=== PATIENT | male | born 1955 | race Caucasian/White ===

== ENCOUNTER 2017-03-21 12:29 | Emergency (ER) | payer MEDICARE, MEDICAID, OTHER ==
[2017-03-21] MEDS ORDERED: Albuterol/Ipratropium 3.0-0.5 MG/3 ML Neb Soln NEB ONE (13:19)
--- NOTE | 2017-03-21 13:29 | EDM.PDOC ---
ED HPI GENERAL MEDICAL PROBLEM - General Chief Complaint: Respiratory Problem Time Seen by Provider: 03/21/17 12:59 Source of Information: Reports: Patient History Limitations: Reports: No Limitations - History of Present Illness INITIAL COMMENTS - FREE TEXT/NARRATIVE: Patient presents from [facility] and also through [facility] today, with cough, tight chest, dyspnea for 3 days. [place] been in the [place] for a year now with COPD. He is concerned he has pneumonia. He also has some chronic lower abdominal pain that he says Dr. Viveros has been working up and is still unclear for etiology. He has some difficulty urinating at times but other times can go just fine. Treatments DIRECTOR OF VALUATION: Reports: Oxygen Lower Abdomen Pain Score (Numeric/FACES): 9 - Related Data Allergies Allergy/AdvReac Type Severity Reaction Status Date / Time azithromycin [From Zithromax] Allergy Cannot Verified 06/04/16 11:11 Remember cephalexin monohydrate Allergy Cannot Verified 06/04/16 11:11 [From Keflex] Remember ciprofloxacin Allergy Rash Verified 06/04/16 11:11 diphenhydramine Allergy Rash Verified 03/21/17 13:00 [From Benadryl] diphenhydramine HCl Allergy Rash Verified 06/04/16 11:11 [From Benadryl] doxycycline Allergy Dizziness Verified 06/04/16 11:11 levofloxacin [From Levaquin] Allergy Cannot Verified 03/21/17 13:00 Remember piperacillin Allergy Cannot Verified 06/04/16 11:11 Remember piperacillin sodium Allergy Wheezing Verified 06/04/16 11:11 [From Zosyn] Sulfa (Sulfonamide Allergy Rash Verified 06/04/16 12:58 Antibiotics) tazobactam sodium Allergy Wheezing Verified 06/04/16 11:11 [From Zosyn] vancomycin Allergy Cannot Verified 03/21/17 13:00 Remember Onions Allergy Mild Rash Uncoded 06/04/16 12:58 Peppers Allergy Unknown Rash Uncoded 06/04/16 12:58 Soap Allergy Unknown Itching Uncoded 06/04/16 12:58 Home Meds: Home Meds Budesonide [Pulmicort] 0.5 mg INH 0700,2200 08/27/13 [History] Cholecalciferol (Vitamin D3) [Vitamin D3] 1,000 units PO DAILY 08/27/13 [History ] Escitalopram [Lexapro] 20 mg PO DAILY 08/27/13 [History] Latanoprost [Xalatan 0.005% Ophth Soln] 1 drop EYEBOTH BEDTIME 08/27/13 [History ] Montelukast [Singulair] 10 mg PO DAILY 08/27/13 [History] Omeprazole 20 mg PO DAILY@0530 08/27/13 [History] Theophylline Anhydrous 300 mg PO 0530,2100 08/27/13 [History] Tiotropium [Spiriva Handihaler] 18 mcg INH DAILY 08/27/13 [History] Tamsulosin [Flomax] 0.8 mg PO BEDTIME 05/23/15 [History] Metoprolol Succinate [Toprol XL 50mg] 50 mg PO DAILY 12/15/15 [History] Aspirin [Halfprin] 81 mg PO DAILY #90 tab.ec 12/22/15 [Rx] ClonazePAM [KlonoPIN] 1 mg PO BID #60 tablet 12/22/15 [Rx] Multivitamin with Minerals [Multiple Vitamin] 1 tab PO DAILY #30 tablet [Rx] QUEtiapine Fumarate [Seroquel] 50 mg PO BID #60 tablet 12/22/15 [Rx] Loperamide HCl [Imodium A-D] 2 mg PO ASDIRECTED PRN 06/04/16 [History] Polyethylene Glycol 3350 [MiraLAX] 17 gm PO Q2D@2100 06/04/16 [History] Albuterol [Ventolin HFA] 2 puff INH Q6H PRN 06/06/16 [History] Carboxymethylcellulose Sodium [Refresh Tears] 1 drop EYEBOTH TIDAC PRN 06/06/16 [History] Acetaminophen [Tylenol] 650 mg PO Q4H PRN 03/21/17 [History] Arformoterol [Brovana] 15 mcg NEB BID 03/21/17 [History] Calcium Carbonate [Tums] 500 mg PO TID PRN 03/21/17 [History] Finasteride [Proscar] 5 mg PO DAILY 03/21/17 [History] Loperamide [Imodium] 2 mg PO ASDIRECTED 03/21/17 [History] Past Medical History HEENT History: Reports: Glaucoma, Impaired Vision Cardiovascular History: Reports: SOB on Exertion Respiratory History: Reports: Asthma, Bronchitis, Recurrent, COPD, Pneumonia, Recurrent Gastrointestinal History: Reports: GERD Genitourinary History: Reports: BPH, Prostate Disorder Other Genitourinary History: cystitis without hematuria Musculoskeletal History: Reports: Back Pain, Chronic, Neck Pain, Chronic Neurological History: Reports: Other (See Below) Other Neuro History: chronic shaking Psychiatric History: Reports: Anxiety, Panic Attack Endocrine/Metabolic History: Reports: Vitamin D Deficiency, Other (See Below) Other Endocrine/Metabolic History: thyroid nodule,nontoxic uninodular goiter Hematologic History: Reports: Other (See Below) Other Hematologic History: platelet transfusion - Infectious Disease History Infectious Disease History: Reports: Measles, Mumps, Rubella - Past Surgical History GI Surgical History: Reports: Hernia, Inguinal Musculoskeletal Surgical History: Reports: Other (See Below) Social & Family History - Family History Family Medical History: Noncontributory - Tobacco Use Smoking Status *Q: Former Smoker Years of Tobacco use: 30 Packs/Tins Daily: 3 Used Tobacco, but Quit: Yes Month Tobacco Last Used: December Second Hand Smoke Exposure: No - Caffeine Use Caffeine Use: Reports: Coffee, Soda - Alcohol Use Days Per Week of Alcohol Use: 0 - Recreational Drug Use Recreational Drug Use: No ED ROS GENERAL - Review of Systems Review Of Systems: See Below Constitutional: Reports: Fever. Denies: Chills HEENT: Reports: No Symptoms Respiratory: Reports: Shortness of Breath, Wheezing, Cough, Sputum Cardiovascular: Denies: Chest Pain, Syncope GI/Abdominal: Reports: Abdominal Pain (lower abdomen for more than a month), Constipation (feels a little constipated; last BM was 25 hours ago.). Denies: Vomiting : Reports: Urinary Retention (intermittent). Denies: Dysuria, Flank Pain Musculoskeletal: Reports: No Symptoms Skin: Denies: Cyanosis, Jaundice, Mottled, Pallor, Diaphoresis Neurological: Denies: Confusion, Dizziness, Trouble Speaking Psychiatric: Denies: Agitation, Anxiety, Confusion ED EXAM, GENERAL - Physical Exam Exam: See Below Exam Limited By: No Limitations General Appearance: Alert, WD/WN, No Apparent Distress Eye Exam: Bilateral Eye: EOMI, Normal Inspection, PERRL Ears: Normal External Exam, Hearing Grossly Normal Nose: Normal Inspection, No Blood. No: Nasal Flaring Throat/Mouth: Normal Inspection, Normal Lips, Normal Voice, No Airway Compromise Head: Atraumatic, Normocephalic Neck: Normal Inspection, Supple, Non-Tender, Full Range of Motion Respiratory/Chest: Respiratory Distress (minimal at rest), Decreased Breath Sounds, Crackles (minimal, mostly decreased lung sounds), Wheezing. No: Rhonchi , Accessory Muscle Use Cardiovascular: Normal Peripheral Pulses, Regular Rate, Rhythm, No Edema, No JVD , No Murmur Peripheral Pulses: 2+: Carotid (L), Carotid (R), Radial (L), Radial (R), Posterior Tibial (L), Posterior Tibial (R) GI/Abdominal: Normal Bowel Sounds, Soft, No Organomegaly, No Distention, Tender (LUQ/LLQ, suprapubic). No: Rigid Back Exam: No: CVA Tenderness (L), CVA Tenderness (R) Extremities: Normal Inspection, Normal Range of Motion, Non-Tender, No Pedal Edema Neurological: Alert, Oriented, Normal Cognition, No Motor/Sensory Deficits Psychiatric: Normal Affect, Normal Mood Skin Exam: Warm, Dry, Intact, Normal Color, No Rash Course - Vital Signs Last Recorded V/S: Last Vital Signs Temp 100.0 F 03/21/17 12:32 Pulse 86 03/21/17 13:37 Resp 20 03/21/17 12:32 BP 137/76 03/21/17 12:32 Pulse Ox 97 03/21/17 12:32 - Orders/Labs/Meds Orders: Active Orders 24 hr Category Date Time Status RT Aerosol Therapy [RC] ASDIRECTED Care 03/21/17 13:19 Ordered Abdomen 2V AP Upright Decub [CR] Stat Exams 03/21/17 13:16 Ordered Chest 2V [CR] Stat Exams 03/21/17 13:16 Ordered CULTURE BLOOD [BC] Stat Lab 03/21/17 13:46 Ordered CULTURE BLOOD [BC] Stat Lab 03/21/17 13:46 Ordered Levofloxacin [Levaquin] Med 03/21/17 14:31 Once 750 mg PO ONETIME ONE Blood Culture x2 Reflex Set [OM.PC] Stat Oth 03/21/17 13:45 Ordered Labs: Laboratory Tests 03/21/17 03/21/17 03/21/17 Range/Units 12:50 12:50 12:50 WBC 11.5 H (5.0-10.0) 10^3/uL RBC 4.47 L (4.50-6.00) 10^6/uL Hgb 14.2 (13.0-17.0) g/dL Hct 42.7 (40.0-52.0) % MCV 95.5 H (82.0-92.0) fL MCH 31.8 H (27.0-31.0) pg MCHC 33.3 (32.0-36.0) g/dL RDW 13.8 (11.5-14.5) % Plt Count 153 (150-300) 10^3/uL MPV 9.0 (7.4-10.4) fL Neut % (Auto) 86.8 H (50.0-70.0) % Lymph % (Auto) 5.6 L (20.0-40.0) % Gregg % (Auto) 7.0 (2.0-8.0) % Eos % (Auto) 0.5 L (1.0-3.0) % Baso % (Auto) 0.1 (0.0-1.0) % Neut # (Auto) 10.0 H (2.5-7.0) 10^3/uL Lymph # (Auto) 0.6 L (1.0-4.0) 10^3/uL Gregg # (Auto) 0.8 (0.1-0.8) 10^3/uL Eos # (Auto) 0.1 (0.1-0.3) 10^3/uL Baso # (Auto) 0.0 (0.0-0.1) 10^3/uL Sodium 139 (136-145) mmol/L Potassium 4.2 (3.3-5.3) mmol/L Chloride 102 (98-115) mmol/L Carbon Dioxide 30.7 (21.0-32.0) mmol/L BUN 6 (6-25) mg/dL Creatinine 0.83 (0.51-1.17) mg/dL Est Cr Clr Drug Dosing 126.66 mL/min Estimated GFR (MDRD) > 60 mL/min Glucose 109 (70-110) mg/dL Lactic Acid 2.2 H (0.4-2.0) mmol/L Calcium 8.7 (8.7-10.3) mg/dL Total Bilirubin 0.6 (0.2-1.0) mg/dL AST 20 (15-37) U/L ALT 33 (12-78) U/L Alkaline Phosphatase 70 (46-116) IU/L Total Protein 7.6 (6.4-8.2) g/dL Albumin 3.41 (3.00-4.80) g/dL Specimen Type Urine Color (YELLOW) Urine Appearance (CLEAR) Urine pH (5.0-9.0) Ur Specific Keldron (1.005-1.030) Urine Protein (NEGATIVE) mg/dL Urine Glucose (UA) (NEGATIVE) mg/dL Urine Ketones (NEGATIVE) mg/dL Urine Occult Blood (NEGATIVE) Urine Nitrite (NEGATIVE) Urine Bilirubin (NEGATIVE) Urine Urobilinogen (0.2-1.0) E.U./dL Ur Leukocyte Esterase (NEGATIVE) Urine RBC /HPF Urine WBC /HPF Ur Epithelial Cells /LPF Urine Bacteria (NONE TO FEW) /HPF 03/21/17 Range/Units 13:25 WBC (5.0-10.0) 10^3/uL RBC (4.50-6.00) 10^6/uL Hgb (13.0-17.0) g/dL Hct (40.0-52.0) % MCV (82.0-92.0) fL MCH (27.0-31.0) pg MCHC (32.0-36.0) g/dL RDW (11.5-14.5) % Plt Count (150-300) 10^3/uL MPV (7.4-10.4) fL Neut % (Auto) (50.0-70.0) % Lymph % (Auto) (20.0-40.0) % Gregg % (Auto) (2.0-8.0) % Eos % (Auto) (1.0-3.0) % Baso % (Auto) (0.0-1.0) % Neut # (Auto) (2.5-7.0) 10^3/uL Lymph # (Auto) (1.0-4.0) 10^3/uL Gregg # (Auto) (0.1-0.8) 10^3/uL Eos # (Auto) (0.1-0.3) 10^3/uL Baso # (Auto) (0.0-0.1) 10^3/uL Sodium (136-145) mmol/L Potassium (3.3-5.3) mmol/L Chloride (98-115) mmol/L Carbon Dioxide (21.0-32.0) mmol/L BUN (6-25) mg/dL Creatinine (0.51-1.17) mg/dL Est Cr Clr Drug Dosing mL/min Estimated GFR (MDRD) mL/min Glucose (70-110) mg/dL Lactic Acid (0.4-2.0) mmol/L Calcium (8.7-10.3) mg/dL Total Bilirubin (0.2-1.0) mg/dL AST (15-37) U/L ALT (12-78) U/L Alkaline Phosphatase (46-116) IU/L Total Protein (6.4-8.2) g/dL Albumin (3.00-4.80) g/dL Specimen Type Urinvoid Urine Color Yellow (YELLOW) Urine Appearance Clear (CLEAR) Urine pH 7.0 (5.0-9.0) Ur Specific Keldron 1.020 (1.005-1.030) Urine Protein Negative (NEGATIVE) mg/dL Urine Glucose (UA) Negative (NEGATIVE) mg/dL Urine Ketones Negative (NEGATIVE) mg/dL Urine Occult Blood Trace-lysed H (NEGATIVE) Urine Nitrite Negative (NEGATIVE) Urine Bilirubin Negative (NEGATIVE) Urine Urobilinogen 0.2 (0.2-1.0) E.U./dL Ur Leukocyte Esterase Negative (NEGATIVE) Urine RBC 0-5 /HPF Urine WBC 0-5 /HPF Ur Epithelial Cells Rare /LPF Urine Bacteria Rare (NONE TO FEW) /HPF Meds: Medications Discontinued Medications Generic Name Dose Route Start Last Admin Trade Name Freq PRN Reason Stop Dose Admin Albuterol/Ipratropium 3 ml 03/21/17 13:19 03/21/17 13:36 Duoneb 3.0-0.5 Mg/3 Ml NEB 03/21/17 13:20 3 ml ONETIME ONE Administration - Re-Assessments/Exams Free Text/Narrative Re-Assessment/Exam: 03/21/17 14:32 Duoneb today provided significant improvement in his breathing. Clinically air movement is improved as well. WBC of 11.5 and 89% neutrophils. CXR shows nothing acute. Abdominal film is negative. Discussed findings and treatment options with patient. Will discharge to [place] and treat with Levaquin for presumed early pneumonia and resume qid Duoneb treatments. Pt prefers this rather than staying in hospital and I feel it is reasonable and appropriate. Patient stable and feeling significantly improved at discharge. 03/21/17 14:51 Pt has an extensive list of antibiotic allergies including: penicillins, cephalosporins, doxycycline, zithromax, sulfa, cipro and vanco. Looking at most recent visits he has been on Levaquin and Vanco successfully. Pt isn't sure why Vanco is listed on his allergies. Departure - Departure Time of Disposition: 14:37 Disposition: DC/Tfer to [facility] 03 Condition: Fair Clinical Impression: COPD exacerbation, HCAP (healthcare-associated pneumonia) - Discharge Information Forms: ED Department Discharge Additional Instructions: 1. Take Levaquin 750 mg daily for ten days. 2. Use Duoneb four times daily and albuterol qid prn neb for ten days. Continue your other medications as directed. 3. Drink 6-8 cups of water daily. 4. Follow up with your PCP in 7-10 days for recheck or sooner as needed. - My Orders Last 24 Hours: My Active Orders 03/21/17 13:16 Abdomen 2V AP Upright Decub [CR] Stat Chest 2V [CR] Stat 03/21/17 13:19 RT Aerosol Therapy [RC] ASDIRECTED 03/21/17 13:45 Blood Culture x2 Reflex Set [OM.PC] Stat 03/21/17 13:46 CULTURE BLOOD [BC] Stat CULTURE BLOOD [BC] Stat 03/21/17 14:31 Levofloxacin [Levaquin] 750 mg PO ONETIME ONE - Assessment/Plan Last 24 Hours: My Active Orders 03/21/17 13:16 Abdomen 2V AP Upright Decub [CR] Stat Chest 2V [CR] Stat 03/21/17 13:19 RT Aerosol Therapy [RC] ASDIRECTED 03/21/17 13:45 Blood Culture x2 Reflex Set [OM.PC] Stat 03/21/17 13:46 CULTURE BLOOD [BC] Stat CULTURE BLOOD [BC] Stat 03/21/17 14:31 Levofloxacin [Levaquin] 750 mg PO ONETIME ONE
[2017-03-21 13:56] LABS: CHLORIDE,CL 102 mmol/L (98-115); SODIUM,NA 139 mmol/L (136-145)
[2017-03-21] MEDS ORDERED: Levofloxacin 500 MG Tab PO ONE (14:31)
[2017-03-21 15:13] VITALS: BP 118/68
== END 2017-03-21 15:20 ==
LOC: KA.ED 12:29
DX: J44.1 Chronic obstructive pulmonary disease with (acute) exacerbation (principal); J18.9 Pneumonia, unspecified organism; F41.0 Panic disorder [episodic paroxysmal anxiety]; K21.9 Gastro-esophageal reflux disease without esophagitis; Z88.1 Allergy status to other antibiotic agents; Z88.2 Allergy status to sulfonamides; Z91.018 Allergy to other foods; Z91.048 Other nonmedicinal substance allergy status; Z79.82 Long term (current) use of aspirin; Z79.899 Other long term (current) drug therapy; Z87.01 Personal history of pneumonia (recurrent); Z87.891 Personal history of nicotine dependence
CPT/HCPCS: 71020; 74020; 80053; 81001; 83605; 85025; 94640; 99285; A9270

== ENCOUNTER 2017-07-01 09:40 | Emergency (ER) | payer MEDICARE, MEDICAID ==
[2017-07-01 09:58] VITALS: BP 143/69
[2017-07-01] MEDS ORDERED: Iopamidol 612 MG/ML 75 ML Bottle IV PRN (10:28)
[2017-07-01] MEDS ORDERED: Sodium Chloride 0.9% 50 ML SDV FLUSH ONE (10:30)
--- NOTE | 2017-07-01 10:41 | EDM.PDOC ---
ED HPI GENERAL MEDICAL PROBLEM - General Chief Complaint: Abdominal Pain Stated Complaint: ABDOMINAL PAIN Time Seen by Provider: 07/01/17 10:00 Source of Information: Reports: Patient History Limitations: Reports: No Limitations - History of Present Illness INITIAL COMMENTS - FREE TEXT/NARRATIVE: PATIENT IS A 62-YEAR-OLD GENTLEMAN WHO PRESENTS TO EMERGENCY DEPARTMENT FROM NURSING FACILITY THIS MORNING WITH A COMPLAINT OF ABDOMINAL PAIN. PATIENT WAS SEEN IN [facility] BY THERESE MCKAY YESTERDAY, AND A CAT SCAN, AND ULTRASOUND WAS ORDERED FOR TOMORROW. PATIENT STATES THAT THE DISCOMFORT IS BEEN GOING ON FOR SEVERAL WEEKS AND WANTS TO GET THE CAT SCAN SOONER. PATIENT DENIES TRAUMA, NAUSEA, VOMITING, DIARRHEA, FEVER, CHEST PAIN, SHORTNESS OF BREATH, OR BLOOD IN STOOL. Onset: Gradual Duration: Week(s): Location: Reports: Abdomen Quality: Reports: Ache Severity: Mild Improves with: Reports: None Worsens with: Reports: Eating Associated Symptoms: Reports: No Other Symptoms Abdomen Pain Score (Numeric/FACES): 10 - Related Data Allergies Allergy/AdvReac Type Severity Reaction Status Date / Time azithromycin [From Zithromax] Allergy Cannot Verified 07/01/17 09:59 Remember cephalexin monohydrate Allergy Cannot Verified 07/01/17 09:59 [From Keflex] Remember ciprofloxacin Allergy Rash Verified 07/01/17 09:59 diphenhydramine Allergy Rash Verified 07/01/17 09:59 [From Benadryl] diphenhydramine HCl Allergy Rash Verified 07/01/17 09:59 [From Benadryl] doxycycline Allergy Dizziness Verified 07/01/17 09:59 levofloxacin [From Levaquin] Allergy Cannot Verified 07/01/17 09:59 Remember piperacillin Allergy Cannot Verified 07/01/17 09:59 Remember piperacillin sodium Allergy Wheezing Verified 07/01/17 09:59 [From Zosyn] Sulfa (Sulfonamide Allergy Rash Verified 07/01/17 09:59 Antibiotics) tazobactam sodium Allergy Wheezing Verified 07/01/17 09:59 [From Zosyn] vancomycin Allergy Cannot Verified 07/01/17 09:59 Remember Onions Allergy Mild Rash Uncoded 06/04/16 12:58 Peppers Allergy Unknown Rash Uncoded 06/04/16 12:58 Soap Allergy Unknown Itching Uncoded 06/04/16 12:58 Home Meds: Home Meds Budesonide [Pulmicort] 0.5 mg INH 0700,2200 08/27/13 [History] Cholecalciferol (Vitamin D3) [Vitamin D3] 1,000 units PO DAILY 08/27/13 [History ] Escitalopram [Lexapro] 20 mg PO DAILY 08/27/13 [History] Latanoprost [Xalatan 0.005% Ophth Soln] 1 drop EYEBOTH BEDTIME 08/27/13 [History ] Montelukast [Singulair] 10 mg PO DAILY 08/27/13 [History] Omeprazole 20 mg PO DAILY@0530 08/27/13 [History] Theophylline Anhydrous 300 mg PO 0530,2100 08/27/13 [History] Tiotropium [Spiriva Handihaler] 18 mcg INH DAILY 08/27/13 [History] Tamsulosin [Flomax] 0.8 mg PO BEDTIME 05/23/15 [History] Metoprolol Succinate [Toprol XL 50mg] 50 mg PO DAILY 12/15/15 [History] Aspirin [Halfprin] 81 mg PO DAILY #90 tab.ec 12/22/15 [Rx] ClonazePAM [KlonoPIN] 1 mg PO BID #60 tablet 12/22/15 [Rx] Multivitamin with Minerals [Multiple Vitamin] 1 tab PO DAILY #30 tablet [Rx] QUEtiapine Fumarate [Seroquel] 50 mg PO BID #60 tablet 12/22/15 [Rx] Loperamide HCl [Imodium A-D] 2 mg PO ASDIRECTED PRN 06/04/16 [History] Polyethylene Glycol 3350 [MiraLAX] 17 gm PO Q2D@2100 06/04/16 [History] Albuterol [Ventolin HFA] 2 puff INH Q6H PRN 06/06/16 [History] Carboxymethylcellulose Sodium [Refresh Tears] 1 drop EYEBOTH TIDAC PRN 06/06/16 [History] Acetaminophen [Tylenol] 650 mg PO Q4H PRN 03/21/17 [History] Arformoterol [Brovana] 15 mcg NEB BID 03/21/17 [History] Calcium Carbonate [Tums] 500 mg PO TID PRN 03/21/17 [History] Finasteride [Proscar] 5 mg PO DAILY 03/21/17 [History] Loperamide [Imodium] 2 mg PO ASDIRECTED 03/21/17 [History] Past Medical History HEENT History: Reports: Glaucoma, Impaired Vision Cardiovascular History: Reports: SOB on Exertion Respiratory History: Reports: Asthma, Bronchitis, Recurrent, COPD, Pneumonia, Recurrent Gastrointestinal History: Reports: GERD Genitourinary History: Reports: BPH, Prostate Disorder Other Genitourinary History: cystitis without hematuria Musculoskeletal History: Reports: Back Pain, Chronic, Neck Pain, Chronic Neurological History: Reports: Other (See Below) Other Neuro History: chronic shaking Psychiatric History: Reports: Anxiety, Panic Attack Endocrine/Metabolic History: Reports: Vitamin D Deficiency, Other (See Below) Other Endocrine/Metabolic History: thyroid nodule,nontoxic uninodular goiter Hematologic History: Reports: Other (See Below) Other Hematologic History: platelet transfusion - Infectious Disease History Infectious Disease History: Reports: Measles, Mumps, Rubella - Past Surgical History GI Surgical History: Reports: Hernia, Inguinal Musculoskeletal Surgical History: Reports: Other (See Below) Social & Family History - Family History Family Medical History: Noncontributory - Tobacco Use Smoking Status *Q: Former Smoker Years of Tobacco use: 30 Packs/Tins Daily: 3 Used Tobacco, but Quit: Yes Month Tobacco Last Used: December Second Hand Smoke Exposure: No - Caffeine Use Caffeine Use: Reports: Coffee, Soda - Alcohol Use Days Per Week of Alcohol Use: 0 - Recreational Drug Use Recreational Drug Use: No ED ROS GENERAL - Review of Systems Review Of Systems: ROS reveals no pertinent complaints other than HPI. Constitutional: Reports: No Symptoms HEENT: Reports: No Symptoms Respiratory: Reports: No Symptoms Cardiovascular: Reports: No Symptoms Endocrine: Reports: No Symptoms GI/Abdominal: Reports: Abdominal Pain : Reports: No Symptoms Musculoskeletal: Reports: No Symptoms Skin: Reports: No Symptoms Neurological: Reports: No Symptoms Psychiatric: Reports: No Symptoms Hematologic/Lymphatic: Reports: No Symptoms Immunologic: Reports: No Symptoms ED EXAM, GI/ABD - Physical Exam Exam: See Below Exam Limited By: No Limitations General Appearance: Alert, WD/WN, No Apparent Distress Throat/Mouth: Normal Inspection, Normal Oropharynx, No Airway Compromise Head: Atraumatic, Normocephalic Neck: Normal Inspection Respiratory/Chest: No Respiratory Distress, Lungs Clear, Normal Breath Sounds Cardiovascular: Regular Rate, Rhythm, No Murmur GI/Abdominal Exam: Soft, No Organomegaly, No Abnormal Bruit, No Mass, Tender ( DIFFUSELY), Other (HYPERACTIVE BS IN ALL 4 QUADS) Back Exam: Normal Inspection. No: CVA Tenderness (L), CVA Tenderness (R) Extremities: Normal Inspection, No Pedal Edema Neurological: Alert, Oriented, Normal Cognition Psychiatric: Normal Affect, Normal Mood Skin Exam: Warm, Dry, Normal Color, No Rash Course - Vital Signs Last Recorded V/S: Last Vital Signs Temp 99.0 F 07/01/17 09:53 Pulse 116 H 07/01/17 09:53 Resp 20 07/01/17 09:53 BP 143/69 H 07/01/17 09:53 Pulse Ox 98 07/01/17 09:53 - Orders/Labs/Meds Orders: Active Orders 24 hr Category Date Time Status Abdomen Pelvis w Cont [CT] Stat Exams 07/01/17 10:08 Ordered CBC WITH AUTO DIFF [HEME] Stat Lab 07/01/17 10:20 Received COMPREHENSIVE METABOLIC PN,CMP [CHEM] Stat Lab 07/01/17 10:20 Received LIPASE [CHEM] Stat Lab 07/01/17 10:20 Received Iopamidol [Isovue-300 (61%)] Med 07/01/17 10:28 Active 75 ml IV . DIRECTED PRN Medication Orders Iopamidol (Isovue-300 (61%)) 75 ml IV . DIRECTED PRN PRN Reason: FOR RADIOLOGY EXAM Meds: Medications Generic Name Dose Route Start Last Admin Trade Name Freq PRN Reason Stop Dose Admin Iopamidol 75 ml 07/01/17 10:28 Isovue-300 (61%) IV . DIRECTED PRN FOR RADIOLOGY EXAM Discontinued Medications Generic Name Dose Route Start Last Admin Trade Name Freq PRN Reason Stop Dose Admin Sodium Chloride 50 ml 07/01/17 10:30 Normal Saline FLUSH 07/01/17 10:31 ONETIME ONE - Radiology Interpretation Free Text/Narrative:: CT of abdomen and pelvis with IV and oral contrast shows mild persistent calcification left bladder wall, diverticulosis without evidence of diverticulitis, and mild fecal retention in the proximal colon. - Re-Assessments/Exams Free Text/Narrative Re-Assessment/Exam: 07/01/17 12:26 Patient afebrile, nontoxic appearing. Vital signs stable. at bedside. Patient had 2 large bowel movements while in emergency department and feels much better. Departure - Departure Time of Disposition: 12:28 Disposition: DC/Tfer to [facility] Condition: Good Clinical Impression: Abdominal pain Qualifiers: Abdominal location: generalized Qualified Code(s): R10.84 - Generalized abdominal pain Constipation Qualifiers: Constipation type: unspecified constipation type Qualified Code(s): K59.00 - Constipation, unspecified Diverticulosis Qualifiers: Diverticulosis site: unspecified location Diverticulosis bleeding: diverticulosis without bleeding Qualified Code(s): K57.90 - Diverticulosis of intestine, part unspecified, without perforation or abscess without bleeding - Discharge Information Instructions: Abdominal Pain, Adult, [id number], Constipation, Adult, Easy-to -Read Referrals: Therese Mckay, [employer] [Primary Care Provider] - Additional Instructions: Follow-up at [facility] in 2-3 days. Return to emergency room sooner if discomfort continues or worsens. - My Orders Last 24 Hours: My Active Orders 07/01/17 10:08 Abdomen Pelvis w Cont [CT] Stat 07/01/17 10:20 CBC WITH AUTO DIFF [HEME] Stat COMPREHENSIVE METABOLIC PN,CMP [CHEM] Stat LIPASE [CHEM] Stat 07/01/17 10:28 Iopamidol [Isovue-300 (61%)] 75 ml IV . DIRECTED PRN - Assessment/Plan Last 24 Hours: My Active Orders 07/01/17 10:08 Abdomen Pelvis w Cont [CT] Stat 07/01/17 10:20 CBC WITH AUTO DIFF [HEME] Stat COMPREHENSIVE METABOLIC PN,CMP [CHEM] Stat LIPASE [CHEM] Stat 07/01/17 10:28 Iopamidol [Isovue-300 (61%)] 75 ml IV . DIRECTED PRN Assessment:: Abdominal pain, constipation Plan: Follow-up at [facility]
[2017-07-01 10:48] LABS: CHLORIDE,CL 102 mmol/L (98-115); SODIUM,NA 139 mmol/L (136-145)
== END 2017-07-01 12:50 ==
LOC: KA.ED 09:40
DX: K57.90 Diverticulosis of intestine, part unspecified, without perforation or abscess without bleeding (principal); K59.00 Constipation, unspecified; Z88.1 Allergy status to other antibiotic agents; Z88.6 Allergy status to analgesic agent; Z79.899 Other long term (current) drug therapy; Z79.82 Long term (current) use of aspirin; Z87.891 Personal history of nicotine dependence
CPT/HCPCS: 74177; 80053; 83690; 85025; 99285; Q9967; 99284

== ENCOUNTER 2019-02-17 09:13 | Inpatient (IN) | payer MEDICARE, MEDICAID ==
[2019-02-17] MEDS ORDERED: Albuterol/Ipratropium 3.0-0.5 MG/3 ML Neb Soln ONE (09:28)
[2019-02-17] MEDS ORDERED: Albuterol/Ipratropium 3.0-0.5 MG/3 ML Neb Soln NEB ONE (09:29)
[2019-02-17] MEDS ORDERED: Sodium Chloride 0.9% 1,000 ML IV ONE (09:29)
[2019-02-17] MEDS ORDERED: methylPREDNISolone Sodium Succinate 125 MG/2 ML SDV IVPUSH ONE (09:30)
--- NOTE | 2019-02-17 09:40 | EDM.PDOC ---
ED HPI GENERAL MEDICAL PROBLEM - General Chief Complaint: Respiratory Problem Stated Complaint: SOB Time Seen by Provider: 02/17/19 09:19 Source of Information: Reports: Patient History Limitations: Reports: No Limitations - History of Present Illness INITIAL COMMENTS - FREE TEXT/NARRATIVE: Patient presents via ambulance with shortness of breath. He thinks he might have pneumonia. Shortness of breath started two days ago but today he started coughing up lots of sputum. He has COPD and uses inhalers and Duonebs routinely. Today he was very short of breath with minimal activity. He denies chest pain, diaphoresis or vomiting but had some nausea this morning. - Related Data Allergies Allergy/AdvReac Type Severity Reaction Status Date / Time azithromycin [From Zithromax] Allergy Cannot Verified 02/17/19 09:14 Remember cephalexin monohydrate Allergy Cannot Verified 02/17/19 09:14 [From Keflex] Remember ciprofloxacin Allergy Rash Verified 02/17/19 09:14 diphenhydramine HCl Allergy Rash Verified 02/17/19 09:14 [From Benadryl] doxycycline Allergy Dizziness Verified 02/17/19 09:14 levofloxacin [From Levaquin] Allergy Cannot Verified 02/17/19 09:14 Remember piperacillin sodium Allergy Wheezing Verified 02/17/19 09:14 [From Zosyn] Sulfa (Sulfonamide Allergy Rash Verified 02/17/19 09:14 Antibiotics) tazobactam sodium Allergy Wheezing Verified 02/17/19 09:14 [From Zosyn] vancomycin Allergy Cannot Verified 02/17/19 09:14 Remember Onions Allergy Mild Rash Uncoded 07/01/17 12:20 Peppers Allergy Unknown Rash Uncoded 07/01/17 12:20 Soap Allergy Unknown Itching Uncoded 07/01/17 12:20 Home Meds: Home Meds Budesonide [Pulmicort] 0.5 mg INH 0700,2200 08/27/13 [History] Cholecalciferol (Vitamin D3) [Vitamin D3] 1,000 units PO DAILY 08/27/13 [History ] Escitalopram [Lexapro] 20 mg PO DAILY 08/27/13 [History] Latanoprost [Xalatan 0.005% Ophth Soln] 1 drop EYEBOTH BEDTIME 08/27/13 [History ] Montelukast [Singulair] 10 mg PO DAILY 08/27/13 [History] Omeprazole 20 mg PO DAILY@0530 08/27/13 [History] Tiotropium [Spiriva Handihaler] 18 mcg INH DAILY 08/27/13 [History] Tamsulosin [Flomax] 0.8 mg PO BEDTIME 05/23/15 [History] Metoprolol Succinate [Toprol XL 50mg] 50 mg PO DAILY 12/15/15 [History] Aspirin [Halfprin] 81 mg PO DAILY #90 tab.ec 12/22/15 [Rx] Multivitamin with Minerals [Multiple Vitamin] 1 tab PO DAILY #30 tablet [Rx] Polyethylene Glycol 3350 [MiraLAX] 17 gm PO Q2D@2100 06/04/16 [History] Albuterol [Ventolin HFA] 2 puff INH Q6H PRN 06/06/16 [History] Carboxymethylcellulose Sodium [Refresh Tears] 1 drop EYEBOTH TIDAC PRN 06/06/16 [History] Acetaminophen [Tylenol] 650 mg PO Q4H PRN 03/21/17 [History] Arformoterol [Brovana] 15 mcg NEB BID 03/21/17 [History] Finasteride [Proscar] 5 mg PO DAILY 03/21/17 [History] Albuterol/Ipratropium [DuoNeb 3.0-0.5 MG/3 ML] 3 ml INH Q8H PRN 02/17/19 [ History] QUEtiapine Fumarate [Seroquel] 400 mg PO BEDTIME 02/17/19 [History] QUEtiapine [SEROquel] 100 mg PO 0900,1700 02/17/19 [History] clonazePAM [Klonopin] 1 mg PO BID 02/17/19 [History] Past Medical History HEENT History: Reports: Glaucoma, Impaired Vision Cardiovascular History: Reports: SOB on Exertion Respiratory History: Reports: Asthma, Bronchitis, Recurrent, COPD, Pneumonia, Recurrent Gastrointestinal History: Reports: GERD Genitourinary History: Reports: BPH, Prostate Disorder Other Genitourinary History: cystitis without hematuria Musculoskeletal History: Reports: Back Pain, Chronic, Neck Pain, Chronic Neurological History: Reports: Other (See Below) Other Neuro History: chronic shaking Psychiatric History: Reports: Anxiety, Panic Attack Endocrine/Metabolic History: Reports: Vitamin D Deficiency, Other (See Below) Other Endocrine/Metabolic History: thyroid nodule,nontoxic uninodular goiter Hematologic History: Reports: Other (See Below) Other Hematologic History: platelet transfusion - Infectious Disease History Infectious Disease History: Reports: Measles, Mumps, Rubella - Past Surgical History GI Surgical History: Reports: Hernia, Inguinal Musculoskeletal Surgical History: Reports: Other (See Below) Social & Family History - Family History Family Medical History: Noncontributory - Caffeine Use Caffeine Use: Reports: Coffee, Soda ED ROS GENERAL - Review of Systems Review Of Systems: See Below Constitutional: Reports: Fever, Malaise HEENT: Denies: Throat Pain, Vision Change Respiratory: Reports: Shortness of Breath, Wheezing, Cough, Sputum (started today) Cardiovascular: Denies: Chest Pain, Lightheadedness, Syncope GI/Abdominal: Reports: Nausea. Denies: Abdominal Pain, Constipation, Diarrhea, Vomiting : Denies: Dysuria Musculoskeletal: Reports: No Symptoms Skin: Denies: Cyanosis, Jaundice, Mottled, Pallor, Diaphoresis Neurological: Denies: Confusion, Dizziness, Seizure, Syncope, Trouble Speaking, Difficulty Walking Psychiatric: Denies: Agitation, Anxiety, Confusion ED EXAM, GENERAL - Physical Exam Exam: See Below Exam Limited By: No Limitations General Appearance: Alert, WD/WN, No Apparent Distress Eye Exam: Bilateral Eye: EOMI, Normal Inspection, PERRL Ears: Normal External Exam, Hearing Grossly Normal Nose: Normal Inspection, No Blood Throat/Mouth: Normal Inspection, Normal Lips, Normal Voice, No Airway Compromise Head: Atraumatic, Normocephalic Neck: Normal Inspection, Supple, Non-Tender, Full Range of Motion Respiratory/Chest: Decreased Breath Sounds, Prolonged Expiration Cardiovascular: Tachycardia (regular rhythm) Peripheral Pulses: 2+: Carotid (L), Carotid (R), Radial (L), Radial (R) GI/Abdominal: Normal Bowel Sounds, Soft, Non-Tender, No Organomegaly, No Distention Extremities: Normal Inspection, Normal Range of Motion, Non-Tender, No Pedal Edema Neurological: Alert, Oriented, Normal Cognition, No Motor/Sensory Deficits Psychiatric: Normal Affect, Normal Mood Skin Exam: Warm, Dry, Intact, Normal Color, No Rash Course - Vital Signs Last Recorded V/S: Last Vital Signs Temp 99 F 02/17/19 10:53 Pulse 99 02/17/19 10:53 Resp 19 07/17/19 10:53 BP 134/64 02/17/19 10:53 Pulse Ox 98 02/17/19 10:53 - Orders/Labs/Meds Orders: Active Orders 24 hr Category Date Time Status Patient Status [ADT] Routine ADT 02/17/19 10:48 Ordered Peripheral IV Care [RC] . DIRECTED Care 02/17/19 09:41 Active RT Aerosol Therapy [RC] ASDIRECTED Care 02/17/19 09:30 Active CULTURE BLOOD [BC] Stat Lab 02/17/19 09:39 Received CULTURE BLOOD [BC] Stat Lab 02/17/19 09:45 Received Sodium Chloride 0.9% [Saline Flush] Med 02/17/19 09:41 Active 10 ml FLUSH Q8HR PRN Blood Culture x2 Reflex Set [OM.PC] Stat Oth 02/17/19 09:29 Ordered Peripheral IV Insertion Adult [OM.PC] Routine Oth 02/17/19 09:41 Ordered Resuscitation Status Stat Resus Stat 02/17/19 10:52 Ordered Medication Orders Sodium Chloride (Saline Flush) 10 ml FLUSH Q8HR PRN PRN Reason: keep vein open Labs: Laboratory Tests 02/17/19 02/17/19 02/17/19 Range/Units 09:05 09:05 09:39 WBC 14.04 H (5.00-10.00) 10^3/uL RBC 4.86 (4.50-6.00) 10^6/uL Hgb 15.7 (13.0-17.0) g/dL Hct 46.0 (40.0-52.0) % MCV 94.7 H (82.0-92.0) fL MCH 32.3 H (27.0-31.0) pg MCHC 34.1 (32.0-36.0) g/dL RDW 13.2 (11.5-14.5) % Plt Count 126 L (150-400) 10^3/uL MPV 10.4 (7.4-10.4) fL Immature Gran % (Auto) 0.1 (0.0-5.0) % Neut % (Auto) 88.6 H (50.0-70.0) % Lymph % (Auto) 5.1 L (20.0-40.0) % [place] % (Auto) 5.9 (2.0-8.0) % Eos % (Auto) 0.2 L (1.0-3.0) % Baso % (Auto) 0.1 (0.0-1.0) % Immature Gran # (Auto) 0.02 (0.00-0.50) 10^3/uL Neut # (Auto) 12.44 H (2.50-7.00) 10^3/uL Lymph # (Auto) 0.71 L (1.00-4.00) 10^3/uL [place] # (Auto) 0.83 H (0.10-0.80) 10^3/uL Eos # (Auto) 0.03 L (0.10-0.30) 10^3/uL Baso # (Auto) 0.01 (0.00-0.10) 10^3/uL Sodium 139 (136-145) mmol/L Potassium 4.2 (3.3-5.3) mmol/L Chloride 103 (98-115) mmol/L Carbon Dioxide 29.4 (21.0-32.0) mmol/L Anion Gap 10.8 (5-15) mmol/L BUN 12 (6-25) mg/dL Creatinine 0.78 (0.51-1.17) mg/dL Est Cr Clr Drug Dosing 119.94 mL/min Estimated GFR (MDRD) > 60 mL/min Glucose 119 H (75 - 99) mg/dL Lactic Acid 1.4 (0.4-2.0) mmol/L Calcium 9.0 (8.7-10.3) mg/dL Total Bilirubin 0.8 (0.2-1.0) mg/dL AST 9 L (15-37) U/L ALT 15 (12-78) U/L Alkaline Phosphatase 90 (46-116) IU/L Total Protein 7.4 (6.4-8.2) g/dL Albumin 3.39 (3.00-4.80) g/dL Meds: Medications Generic Name Dose Route Start Last Admin Trade Name Freq PRN Reason Stop Dose Admin Sodium Chloride 10 ml 02/17/19 09:41 Saline Flush FLUSH Q8HR PRN keep vein open Discontinued Medications Generic Name Dose Route Start Last Admin Trade Name Freq PRN Reason Stop Dose Admin Acetaminophen 650 mg 02/17/19 10:03 02/17/19 10:11 Tylenol PO 02/17/19 10:04 650 mg NOW ONE Administration Albuterol/Ipratropium 3 ml 02/17/19 09:29 02/17/19 09:32 Duoneb 3.0-0.5 Mg/3 Ml NEB 02/17/19 09:30 3 ml ONETIME ONE Administration Albuterol/Ipratropium Confirm 02/17/19 09:28 02/17/19 09:32 Duoneb 3.0-0.5 Mg/3 Ml Administered 02/17/19 09:29 Not Given Dose 3 ml .ROUTE .STK-MED ONE Sodium Chloride 1,000 mls @ 999 mls/hr 02/17/19 09:29 02/17/19 09:32 Normal Saline IV 02/17/19 10:29 999 mls/hr .BOLUS ONE Administration Methylprednisolone Sodium Succinate 125 mg 02/17/19 09:30 02/17/19 09:41 Solu-Medrol IVPUSH 02/17/19 09:31 125 mg ONETIME ONE Administration - Re-Assessments/Exams Free Text/Narrative Re-Assessment/Exam: 02/17/19 10:53 WBC is 14 with ANC 12. CXR doesn't confirm definite pneumonia but clinically I feel early pneumonia is most likely. Blood cultures are pending. Patient is stable but air movement is still very restricted even after solumedrol and duonebs. Discussed findings with patient and his and with Kobe Mcdonald NP. Will admit for inpatient treatment. Patient is listed as allergic to almost all antibiotics. I discussed this with Kobe and we feel some of these are likely not true allergies. Kobe wants to try a couple on the floor and not start any antibiotic while in ER. Departure - Departure Time of Disposition: 10:52 Disposition: Admitted As Inpatient 65 Condition: Good Clinical Impression: COPD exacerbation CAP (community acquired pneumonia) Qualifiers: Laterality: unspecified laterality Qualified Code(s): J18.9 - Pneumonia, unspecified organism - Discharge Information - My Orders Last 24 Hours: My Active Orders 02/17/19 09:29 Blood Culture x2 Reflex Set [OM.PC] Stat 02/17/19 09:30 RT Aerosol Therapy [RC] ASDIRECTED 02/17/19 09:39 CULTURE BLOOD [BC] Stat 02/17/19 09:41 Peripheral IV Care [RC] . DIRECTED Sodium Chloride 0.9% [Saline Flush] 10 ml FLUSH Q8HR PRN Peripheral IV Insertion Adult [OM.PC] Routine 02/17/19 09:45 CULTURE BLOOD [BC] Stat 02/17/19 10:48 Patient Status [ADT] Routine 02/17/19 10:52 Resuscitation Status Stat - Assessment/Plan Last 24 Hours: My Active Orders 02/17/19 09:29 Blood Culture x2 Reflex Set [OM.PC] Stat 02/17/19 09:30 RT Aerosol Therapy [RC] ASDIRECTED 02/17/19 09:39 CULTURE BLOOD [BC] Stat 02/17/19 09:41 Peripheral IV Care [RC] . DIRECTED Sodium Chloride 0.9% [Saline Flush] 10 ml FLUSH Q8HR PRN Peripheral IV Insertion Adult [OM.PC] Routine 02/17/19 09:45 CULTURE BLOOD [BC] Stat 02/17/19 10:48 Patient Status [ADT] Routine 02/17/19 10:52 Resuscitation Status Stat
[2019-02-17] MEDS ORDERED: Sodium Chloride 0.9% 10 ML Syringe FLUSH PRN (09:41)
[2019-02-17 09:54] LABS: ANION GAP 10.8 mmol/L (5-15); CHLORIDE,CL 103 mmol/L (98-115); SODIUM,NA 139 mmol/L (136-145)
[2019-02-17] MEDS ORDERED: Acetaminophen 325 MG Tab PO ONE (10:03)
--- NOTE | 2019-02-17 10:25 | CR ---
[id number] RAD/RAD Chest PA And Lateral EXAM: RAD Chest PA And Lateral INDICATION: DYSPNEA, COUGH. COMPARISON: March 21, 2017. DISCUSSION: Cardiomediastinal silhouette is unchanged in size and contour compared the prior examination.. Advanced changes of pulmonary emphysema with scattered pleural and parenchymal scarring most prominent in the lung apices. Overall, no significant change in appearance of the chest compared to prior examination in 2017. IMPRESSION: No acute findings or significant change from prior examination, described above. Ross Toledo MD 02/17/19 1024 Thank you for allowing us to participate in the care of your patient.
--- NOTE | 2019-02-17 11:48 | PCM.HP ---
H&P History of Present Illness - General Date of Service: 02/17/19 Admit Problem/Dx: Admission Diagnosis/Problem Admission Diagnosis/Problem COPD with acute lower respiratory infection Source of Information: Patient, Old Records, Provider, RN, Significant Other - History of Present Illness Initial Comments - Free Text/Narative: Luis is a 64 -year-old gentleman with long-standing end-stage COPD presenting to the ED via EMS this morning due with 2 day history of increased work of breathing shortness of breath with increased mucous production starting today with accompanying nausea. - Related Data Allergies/Adverse Reactions: Allergies Allergy/AdvReac Type Severity Reaction Status Date / Time azithromycin [From Zithromax] Allergy Cannot Verified 02/17/19 09:14 Remember cephalexin monohydrate Allergy Cannot Verified 02/17/19 09:14 [From Keflex] Remember ciprofloxacin Allergy Rash Verified 02/17/19 09:14 diphenhydramine HCl Allergy Rash Verified 02/17/19 09:14 [From Benadryl] doxycycline Allergy Dizziness Verified 02/17/19 09:14 levofloxacin [From Levaquin] Allergy Cannot Verified 02/17/19 09:14 Remember piperacillin sodium Allergy Wheezing Verified 02/17/19 09:14 [From Zosyn] Sulfa (Sulfonamide Allergy Rash Verified 02/17/19 09:14 Antibiotics) tazobactam sodium Allergy Wheezing Verified 02/17/19 09:14 [From Zosyn] vancomycin Allergy Cannot Verified 02/17/19 09:14 Remember Onions Allergy Mild Rash Uncoded 02/17/19 11:33 Peppers Allergy Unknown Rash Uncoded 02/17/19 11:33 Soap Allergy Unknown Itching Uncoded 02/17/19 11:33 Home Medications: Home Meds Budesonide [Pulmicort] 0.5 mg INH 0700,2200 08/27/13 [History] Cholecalciferol (Vitamin D3) [Vitamin D3] 1,000 units PO DAILY 08/27/13 [History ] Escitalopram [Lexapro] 20 mg PO DAILY 08/27/13 [History] Latanoprost [Xalatan 0.005% Ophth Soln] 1 drop EYEBOTH BEDTIME 08/27/13 [History ] Montelukast [Singulair] 10 mg PO DAILY 08/27/13 [History] Omeprazole 20 mg PO DAILY 08/27/13 [History] Tiotropium [Spiriva Handihaler] 18 mcg INH DAILY 08/27/13 [History] Tamsulosin [Flomax] 0.8 mg PO BEDTIME 05/23/15 [History] Metoprolol Succinate [Toprol XL 50mg] 50 mg PO DAILY 12/15/15 [History] Aspirin [Halfprin] 81 mg PO DAILY #90 tab.ec 12/22/15 [Rx] Multivitamin with Minerals [Multiple Vitamin] 1 tab PO DAILY #30 tablet [Rx] Polyethylene Glycol 3350 [MiraLAX] 17 gm PO DAILY PRN 06/04/16 [History] Albuterol [Ventolin HFA] 2 puff INH Q6H PRN 06/06/16 [History] Carboxymethylcellulose Sodium [Refresh Tears] 1 drop EYEBOTH BEDTIME 06/06/16 [ History] Acetaminophen [Tylenol] 650 mg PO Q4H PRN 03/21/17 [History] Arformoterol [Brovana] 15 mcg NEB BID 03/21/17 [History] Finasteride [Proscar] 5 mg PO DAILY 03/21/17 [History] Albuterol/Ipratropium [DuoNeb 3.0-0.5 MG/3 ML] 3 ml INH Q8H PRN 02/17/19 [ History] QUEtiapine Fumarate [Seroquel] 400 mg PO BEDTIME 02/17/19 [History] QUEtiapine [SEROquel] 100 mg PO 0900,1700 02/17/19 [History] clonazePAM [Klonopin] 1 mg PO BID 02/17/19 [History] Past Medical History HEENT History: Reports: Glaucoma, Impaired Vision Cardiovascular History: Reports: SOB on Exertion Respiratory History: Reports: Asthma, Bronchitis, Recurrent, COPD, Pneumonia, Recurrent Gastrointestinal History: Reports: GERD Genitourinary History: Reports: BPH, Prostate Disorder Other Genitourinary History: cystitis without hematuria Musculoskeletal History: Reports: Back Pain, Chronic, Neck Pain, Chronic Neurological History: Reports: Other (See Below) Other Neuro History: chronic shaking Psychiatric History: Reports: Anxiety, Panic Attack Endocrine/Metabolic History: Reports: Vitamin D Deficiency, Other (See Below) Other Endocrine/Metabolic History: thyroid nodule,nontoxic uninodular goiter Hematologic History: Reports: Other (See Below) Other Hematologic History: platelet transfusion Immunologic History: Reports: None Oncologic (Cancer) History: Reports: None Dermatologic History: Reports: None - Infectious Disease History Infectious Disease History: Reports: Measles, Mumps, Rubella - Past Surgical History GI Surgical History: Reports: Hernia, Inguinal Musculoskeletal Surgical History: Reports: Other (See Below) Dermatological Surgical History: Reports: None Social & Family History - Family History Family Medical History: Noncontributory (reviewed and noncontributory) - Tobacco Use Smoking Status *Q: Former Smoker Used Tobacco, but Quit: Yes Month/Year Tobacco Last Used: 2004 Tobacco Use Comment: Chews on occasion - Caffeine Use Caffeine Use: Reports: Coffee - Recreational Drug Use Recreational Drug Use: No H&P Review of Systems - Review of Systems: Review Of Systems: See Below General: Reports: Night Sweats, Diaphoresis. Denies: Fever, Chills, Malaise, Weakness, Fatigue, Decreased Appetite, Weight Loss HEENT: Reports: No Symptoms Pulmonary: Reports: Cough, Sputum. Denies: Shortness of Breath Cardiovascular: Reports: Dyspnea on Exertion Gastrointestinal: Reports: Constipation Genitourinary: Reports: No Symptoms Musculoskeletal: Reports: No Symptoms Skin: Reports: No Symptoms Psychiatric: Reports: No Symptoms Neurological: Reports: No Symptoms Hematologic/Lymphatic: Reports: No Symptoms Immunologic: Reports: No Symptoms Exam - Exam Exam: See Below - Vital Signs Vital Signs: Last Vital Signs Temp 99 F 02/17/19 11:31 Pulse 98 02/17/19 11:31 Resp 19 02/17/19 11:31 BP 119/61 02/17/19 11:31 Pulse Ox 98 02/17/19 11:31 Weight: 198 lb - Exam Quality Assessment: Supplemental Oxygen, DVT Prophylaxis General: Alert, Oriented, Cooperative. No: Mild Distress HEENT: Conjunctiva Clear, EACs Clear, EOMI, Hearing Intact, Mucosa Moist & [place] , Nares Patent, Normal Nasal Septum, Posterior Pharynx Clear, TMs Clear Lungs: Decreased Breath Sounds. No: Wheezing Cardiovascular: No: Normal S1, Normal S2 GI/Abdominal Exam: Soft, Non-Tender, No Mass (Male) Exam: Deferred Rectal (Males) Exam: Deferred Back Exam: No: CVA Tenderness (L), CVA Tenderness (R) Extremities: No Pedal Edema Peripheral Pulses: 2+: Radial (L), Radial (R) Skin: Warm, Dry, Intact Neurological: Cranial Nerves Intact, Reflexes Equal Bilateral Neuro Extensive - Mental Status: Alert, Oriented x3, Normal Mood/Affect, Normal Cognition Neuro Extensive - Motor, Sensory, Reflexes: CN II-XII Intact, Normal Gait, Normal Reflexes Psychiatric: Alert, Normal Affect, Normal Mood - Patient Data Lab Results Last 24 hrs: Laboratory Results - last 24 hr 02/17/19 02/17/19 02/17/19 Range/Units 09:05 09:05 09:39 WBC 14.04 H (5.00-10.00) 10^3/uL RBC 4.86 (4.50-6.00) 10^6/uL Hgb 15.7 (13.0-17.0) g/dL Hct 46.0 (40.0-52.0) % MCV 94.7 H (82.0-92.0) fL MCH 32.3 H (27.0-31.0) pg MCHC 34.1 (32.0-36.0) g/dL RDW 13.2 (11.5-14.5) % Plt Count 126 L (150-400) 10^3/uL MPV 10.4 (7.4-10.4) fL Immature Gran % (Auto) 0.1 (0.0-5.0) % Neut % (Auto) 88.6 H (50.0-70.0) % Lymph % (Auto) 5.1 L (20.0-40.0) % [place] % (Auto) 5.9 (2.0-8.0) % Eos % (Auto) 0.2 L (1.0-3.0) % Baso % (Auto) 0.1 (0.0-1.0) % Immature Gran # (Auto) 0.02 (0.00-0.50) 10^3/uL Neut # (Auto) 12.44 H (2.50-7.00) 10^3/uL Lymph # (Auto) 0.71 L (1.00-4.00) 10^3/uL [place] # (Auto) 0.83 H (0.10-0.80) 10^3/uL Eos # (Auto) 0.03 L (0.10-0.30) 10^3/uL Baso # (Auto) 0.01 (0.00-0.10) 10^3/uL Sodium 139 (136-145) mmol/L Potassium 4.2 (3.3-5.3) mmol/L Chloride 103 (98-115) mmol/L Carbon Dioxide 29.4 (21.0-32.0) mmol/L Anion Gap 10.8 (5-15) mmol/L BUN 12 (6-25) mg/dL Creatinine 0.78 (0.51-1.17) mg/dL Est Cr Clr Drug Dosing 119.94 mL/min Estimated GFR (MDRD) > 60 mL/min Glucose 119 H (75 - 99) mg/dL Lactic Acid 1.4 (0.4-2.0) mmol/L Calcium 9.0 (8.7-10.3) mg/dL Total Bilirubin 0.8 (0.2-1.0) mg/dL AST 9 L (15-37) U/L ALT 15 (12-78) U/L Alkaline Phosphatase 90 (46-116) IU/L Total Protein 7.4 (6.4-8.2) g/dL Albumin 3.39 (3.00-4.80) g/dL Result Diagrams: 02/19/19 07:15 02/17/19 09:05 Problem List Initiated/Reviewed/Updated: Yes Orders Last 24hrs: Active Orders 24 hr Category Date Time Status Patient Status [ADT] Routine ADT 02/17/19 10:48 Active Peripheral IV Care [RC] 0900,2100 Care 02/17/19 09:41 Active RT Aerosol Therapy [RC] ASDIRECTED Care 02/17/19 09:30 Active CULTURE BLOOD [BC] Stat Lab 02/17/19 09:39 Received CULTURE BLOOD [BC] Stat Lab 02/17/19 09:45 Received RESPIRATORY CULT [MREF] Stat Lab 02/17/19 11:30 Received Sodium Chloride 0.9% [Saline Flush] Med 02/17/19 09:41 Active 10 ml FLUSH Q8HR PRN Blood Culture x2 Reflex Set [OM.PC] Stat Oth 02/17/19 09:29 Ordered Peripheral IV Insertion Adult [OM.PC] Routine Oth 02/17/19 09:41 Ordered Resuscitation Status Stat Resus Stat 02/17/19 10:52 Ordered Medication Orders Sodium Chloride (Saline Flush) 10 ml FLUSH Q8HR PRN PRN Reason: keep vein open Assessment/Plan Comment:: Present illness Luis is a 64 -year-old gentleman with long-standing end-stage COPD presenting to the ED via EMS this morning due with 2 day history of increased work of breathing shortness of breath with increased mucous production starting today with accompanying nausea. Primary hospital problem Rule out pneumonia, Neutrophilia Multiple antibiotic allergy syndrome High risk MDRO COPD, without acute exacerbation Secondary problems Hypertension. Continue with toprol XL. BP adequate. GERD, PPI Depression and anxiety, HOme SRRI lexapro and lorazepam. Schizoaffective disorder. Home seroquel and clonazepam. Disposition/overall plan --Admit to inpatient --Add procalcitonin and CRP --No abx at this time to negative chest x-ray, monitor --Pulmonary toilet --Hold Spiriva, pulmicort --Add Duo Nebs --Monitor for S/S of deterioration altered mental status, respiratory compromise --DVT prophylaxis: Heparin, SCD --Resp c/s to assess inhaler technique, home oxygen sanitation
[2019-02-17] MEDS ORDERED: Polyethylene Glycol 3350 Powder 17 GM Packet PO PRN (12:11)
[2019-02-17] MEDS ORDERED: Acetaminophen 325 MG Tab PO PRN (12:11)
[2019-02-17] MEDS: Albuterol/Ipratropium 3.0-0.5 MG/3 ML Neb Soln NEB SCH ×3 (12:57→20:08)
[2019-02-17] MEDS ORDERED: Heparin Sodium 5,000 Units/ML Vial SUBCUT SCH (14:15)
[2019-02-17] MEDS: QUEtiapine 100 MG Tab PO SCH ×2 (16:47→20:09)
[2019-02-17] MEDS: Tamsulosin 0.4 MG Cap.ER PO SCH (20:08)
[2019-02-17] MEDS: ClonazePAM 0.5 MG Tab PO SCH (20:08)
[2019-02-17] MEDS: Heparin Sodium 5,000 Units/ML Vial SUBCUT SCH (20:08)
[2019-02-17] MEDS: Carboxymethylcellulose Sodium 0.5% Ophth Soln 15 ML Bottle EYEBOTH SCH (20:08)
[2019-02-17] MEDS: Latanoprost 0.005% Ophth Soln 2.5 ML Bottle EYEBOTH SCH (20:09)
[2019-02-18] MEDS: Albuterol/Ipratropium 3.0-0.5 MG/3 ML Neb Soln NEB SCH ×6 (01:10→23:09)
[2019-02-18] MEDS: Omeprazole 20 MG Cap.CR PO SCH (07:31)
[2019-02-18] MEDS: Heparin Sodium 5,000 Units/ML Vial SUBCUT SCH ×2 (07:31→20:04)
[2019-02-18] MEDS: Finasteride 5 MG Tab PO SCH (08:35)
[2019-02-18] MEDS: Metoprolol Succinate 50 MG Tab.ER PO SCH (08:35)
[2019-02-18] MEDS: Aspirin 81 MG Tab.EC PO SCH (08:35)
[2019-02-18] MEDS: Montelukast 10 MG Tab PO SCH (08:35)
[2019-02-18] MEDS: ClonazePAM 0.5 MG Tab PO SCH ×2 (08:35→20:04)
[2019-02-18] MEDS: QUEtiapine 100 MG Tab PO SCH ×3 (08:38→20:04)
[2019-02-18] MEDS ORDERED: Escitalopram 10 MG Tab PO SCH (09:00)
--- NOTE | 2019-02-18 10:20 | PCM.PN ---
- General Info Date of Service: 02/18/19 Functional Status: Reports: Pain Controlled - Review of Systems General: Reports: No Symptoms Pulmonary: Reports: Cough (decreased cough today), Sputum (sputum has changed back to baseline white color) Cardiovascular: Reports: No Symptoms Gastrointestinal: Reports: No Symptoms Genitourinary: Reports: No Symptoms Musculoskeletal: Reports: No Symptoms Skin: Reports: No Symptoms Neurological: Reports: No Symptoms Psychiatric: Reports: No Symptoms - Patient Data Vitals - Most Recent: Last Vital Signs Temp 96.7 F 02/18/19 06:52 Pulse 89 02/18/19 08:40 Resp 20 02/18/19 06:52 BP 130/73 02/18/19 08:35 Pulse Ox 99 02/18/19 08:40 Weight - Most Recent: 198 lb I&O - Last 24 Hours: Intake & Output 02/17/19 02/18/19 02/18/19 22:59 06:59 14:59 Intake Total 700 100 Output Total 1800 300 Balance -1100 -200 Lab Results Last 24 Hours: Laboratory Results - last 24 hr 02/17/19 02/17/19 02/18/19 Range/Units 09:10 09:39 09:15 WBC 10.91 H (5.00-10.00) 10^3/uL RBC 4.52 (4.50-6.00) 10^6/uL Hgb 14.6 (13.0-17.0) g/dL Hct 43.6 (40.0-52.0) % MCV 96.5 H (82.0-92.0) fL MCH 32.3 H (27.0-31.0) pg MCHC 33.5 (32.0-36.0) g/dL RDW 13.1 (11.5-14.5) % Plt Count 115 L (150-400) 10^3/uL MPV 10.3 (7.4-10.4) fL Add Manual Diff Yes Neutrophils % (Manual) 87 H (50-70) % Lymphocytes % (Manual) 9 L (20-40) % Monocytes % (Manual) 4 (2-8) % Absolute Neutrophils 9.4917 Lymphocytes # (Manual) 0.9819 Monocytes # (Manual) 0.4364 Lactic Acid 1.4 (0.4-2.0) mmol/L C-Reactive Protein 12.5 H (0.0-0.9) mg/dL [facility] Results Last 24 Hours: Microbiology 02/17/19 09:45 Aerobic Blood Culture - Preliminary Blood - Venous - Lab Draw NO GROWTH AFTER 1 DAY Anaerobic Blood Culture - Preliminary NO GROWTH AFTER 1 DAY 02/17/19 09:39 Aerobic Blood Culture - Preliminary Blood - Venous NO GROWTH AFTER 1 DAY Anaerobic Blood Culture - Preliminary NO GROWTH AFTER 1 DAY 02/17/19 11:30 Gram Stain - Final Sputum - Expectorated Med Orders - Current: Current Medications Acetaminophen (Tylenol) 650 mg PO Q4H PRN PRN Reason: Pain Albuterol/Ipratropium (Duoneb 3.0-0.5 Mg/3 Ml) 3 ml NEB Q4HRRT [facility] Last Admin: 02/18/19 08:34 Dose: 3 ml Artificial Tears (Refresh Tears 0.5%) 0 ml EYEBOTH BEDTIME [facility] Last Admin: 02/17/19 20:08 Dose: Not Given Aspirin (Halfprin) 81 mg PO DAILY [facility] Last Admin: 02/18/19 08:35 Dose: 81 mg Clonazepam (Klonopin) 1 mg PO BID [facility] Last Admin: 02/18/19 08:35 Dose: 1 mg Escitalopram Oxalate (Lexapro) 20 mg PO DAILY [facility] Finasteride (Proscar) 5 mg PO DAILY [facility] Last Admin: 02/18/19 08:35 Dose: 5 mg Heparin Sodium (Porcine) (Heparin Sodium) 5,000 units SUBCUT 0800,2000 [facility] Last Admin: 02/18/19 07:31 Dose: 5,000 units Latanoprost (Xalatan 0.005% [facility]) 0 ml EYEBOTH BEDTIME [facility] Last Admin: 02/17/19 20:09 Dose: 1 drop Metoprolol Succinate (Toprol Xl) 50 mg PO DAILY [facility] Last Admin: 02/18/19 08:35 Dose: 50 mg Montelukast Sodium (Singulair) 10 mg PO DAILY [facility] Last Admin: 02/18/19 08:35 Dose: 10 mg Omeprazole (Omeprazole) 20 mg PO ACBREAKFAST [facility] Last Admin: 02/18/19 07:31 Dose: 20 mg Polyethylene Glycol (Miralax) 17 gm PO DAILY PRN PRN Reason: Constipation Quetiapine Fumarate (Seroquel) 100 mg PO 0900,1700 [facility] Last Admin: 02/18/19 08:38 Dose: 100 mg Quetiapine Fumarate (Seroquel) 400 mg PO BEDTIME [facility] Last Admin: 02/17/19 20:09 Dose: 400 mg Sodium Chloride (Saline Flush) 10 ml FLUSH Q8HR PRN PRN Reason: keep vein open Tamsulosin HCl (Flomax) 0.8 mg PO BEDTIME [facility] Last Admin: 02/17/19 20:08 Dose: 0.8 mg Discontinued Medications Acetaminophen (Tylenol) 650 mg PO NOW ONE Stop: 02/17/19 10:04 Last Admin: 02/17/19 10:11 Dose: 650 mg Albuterol/Ipratropium (Duoneb 3.0-0.5 Mg/3 Ml) 3 ml NEB ONETIME ONE Stop: 02/17/19 09:30 Last Admin: 02/17/19 09:32 Dose: 3 ml Albuterol/Ipratropium (Duoneb 3.0-0.5 Mg/3 Ml) Confirm Administered Dose 3 ml .ROUTE .STK-MED ONE Stop: 02/17/19 09:29 Last Admin: 02/17/19 09:32 Dose: Not Given Heparin Sodium (Porcine) (Heparin Sodium) 5,000 units SUBCUT Q12H [facility] Last Admin: 02/17/19 14:25 Dose: Not Given Sodium Chloride (Normal Saline) 1,000 mls @ 999 mls/hr IV .BOLUS ONE Stop: 02/17/19 10:29 Last Admin: 02/17/19 09:32 Dose: 999 mls/hr Methylprednisolone Sodium Succinate (Solu-Medrol) 125 mg IVPUSH ONETIME ONE Stop: 02/17/19 09:31 Last Admin: 02/17/19 09:41 Dose: 125 mg - Exam Quality Assessment: Supplemental Oxygen, DVT Prophylaxis General: Alert, Oriented Neck: Supple, JVD Lungs: Decreased Breath Sounds. No: Crackles, Rales, Rhonchi Cardiovascular: Regular Rate, Regular Rhythm GI/Abdominal Exam: Soft (Male) Exam: No Hernia, Normal Inspection, Normal Prostate, Circumcised Back Exam: No: CVA Tenderness (R) Extremities: No Pedal Edema Skin: Warm, Dry, Intact Neurological: No New Focal Deficit Psy/Mental Status: Alert, Normal Affect, Normal Mood - Problem List Review Problem List Initiated/Reviewed/Updated: Yes - My Orders Last 24 Hours: My Active Orders 02/17/19 12:11 Acetaminophen [Tylenol] 650 mg PO Q4H PRN Polyethylene Glycol 3350 [MiraLAX] 17 gm PO DAILY PRN 02/17/19 13:00 Albuterol/Ipratropium [DuoNeb 3.0-0.5 MG/3 ML] 3 ml NEB Q4HRRT 02/17/19 14:02 Antiembolic Devices [RC] 0900 SCD [Sequential Compression Device] [OM.PC] Routine 02/17/19 17:00 QUEtiapine [SEROquel] 100 mg PO 0900,1700 02/17/19 20:00 Heparin Sodium 5,000 units SUBCUT 0800,199902/17/19 21:00 Carboxymethylcellulose Sodium [Refresh Tears 0.5%] 0 ml EYEBOTH BEDTIME ClonazePAM [KlonoPIN] 1 mg PO BID Latanoprost [Xalatan 0.005% Ophth Soln] 0 ml EYEBOTH BEDTIME QUEtiapine [SEROquel] 400 mg PO BEDTIME Tamsulosin [Flomax] 0.8 mg PO BEDTIME 02/18/19 07:30 Omeprazole 20 mg PO ACBREAKFAST 02/18/19 09:00 Aspirin [Halfprin] 81 mg PO DAILY Escitalopram [Lexapro] 20 mg PO DAILY Finasteride [Proscar] 5 mg PO DAILY Metoprolol Succinate [Toprol XL] 50 mg PO DAILY Montelukast [Singulair] 10 mg PO DAILY - Plan Plan:: Present illness Luis is a 64 -year-old gentleman with long-standing end-stage COPD presenting to the ED via EMS this morning due with 2 day history of increased work of breathing shortness of breath with increased mucous production starting today with accompanying nausea. blood cultures and sputum cultures were obtained in ED ___ update today on rounds; ratio feeling much better, sputum has returned to baseline white call her with much less in amount, no overnight no fever, vital signs good, no altered mental status, patient feeling much better, appears to have returned to normal baseline regarding his respirations status. Chest x- ray returned no acute findings. WBC trending down Primary hospital problem Rule out pneumonia, Neutrophilia Multiple antibiotic allergy syndrome High risk MDRO COPD, without acute exacerbation Secondary problems Hypertension. Continue with toprol XL. BP adequate. GERD, PPI Depression and anxiety, Home SRRI lexapro and lorazepam. Schizoaffective disorder. Home seroquel and clonazepam. Disposition/overall plan --Admit to inpatient --pending procalcitonin --Hold off on antibiotic at this time to negative chest x-ray, monitor --Pulmonary toilet --Hold Spiriva, pulmicort --cont schedulted Duo Nebs, change to Q6 --Monitor for S/S of deterioration altered mental status, respiratory compromise --DVT prophylaxis: Heparin, SCD --labs in am --Resp consult to assess inhaler technique, home oxygen sanitation --assessment immunization status Discharge planning Considering removing Pulmicort LABA/LAMA tx may help reduce pneumonia exacerbating hospital admission Discharge anticipate in am. O/P allergy consult for ABX desensitiation consideration 2/2 Multiple antibiotic allergy syndrome
[2019-02-18] MEDS: Tamsulosin 0.4 MG Cap.ER PO SCH (20:04)
[2019-02-18] MEDS: Carboxymethylcellulose Sodium 0.5% Ophth Soln 15 ML Bottle EYEBOTH SCH (20:05)
[2019-02-18] MEDS: Latanoprost 0.005% Ophth Soln 2.5 ML Bottle EYEBOTH SCH (20:05)
[2019-02-19] MEDS: Albuterol/Ipratropium 3.0-0.5 MG/3 ML Neb Soln NEB SCH ×2 (05:27→08:59)
[2019-02-19] MEDS: Heparin Sodium 5,000 Units/ML Vial SUBCUT SCH (08:59)
[2019-02-19] MEDS: Finasteride 5 MG Tab PO SCH (09:00)
[2019-02-19] MEDS: Omeprazole 20 MG Cap.CR PO SCH (09:00)
[2019-02-19] MEDS: Aspirin 81 MG Tab.EC PO SCH (09:00)
[2019-02-19] MEDS: Montelukast 10 MG Tab PO SCH (09:00)
[2019-02-19] MEDS: ClonazePAM 0.5 MG Tab PO SCH (09:00)
[2019-02-19] MEDS: QUEtiapine 100 MG Tab PO SCH (09:10)
[2019-02-19] MEDS: Metoprolol Succinate 50 MG Tab.ER PO SCH (09:16)
[2019-02-19 09:32] VITALS: BP 129/73
[2019-02-19] MEDS ORDERED: ALPRAZolam 0.25 MG Tab PO ONE (09:36)
--- NOTE | 2019-02-19 09:39 | PCM.DCSUM1 ---
Discharge Summary - Hospital Course Diagnosis: Stroke: No - Discharge Data Discharge Date: 02/19/19 Discharge Disposition: Home, Self-Care 01 Condition: Good - Patient Instructions Diet: Usual Diet as Tolerated Activity: As Tolerated, Cough & Deep Breathe Driving: May Drive Today Showering/Bathing: May Shower Notify Provider of: Fever Other/Special Instructions: stay on the exact medications prior to hospitalization for now. Report any worsening shortness of breath or fever,. Report any worsening cough - Discharge Plan *PRESCRIPTION DRUG MONITORING PROGRAM REVIEWED*: Not Applicable *COPY OF PRESCRIPTION DRUG MONITORING REPORT IN PATIENT NIDA: Not Applicable Home Medications: Home Meds Budesonide [Pulmicort] 0.5 mg INH 0700,2200 08/27/13 [History] Cholecalciferol (Vitamin D3) [Vitamin D3] 1,000 units PO DAILY 08/27/13 [History ] Escitalopram [Lexapro] 20 mg PO DAILY 08/27/13 [History] Latanoprost [Xalatan 0.005% Ophth Soln] 1 drop EYEBOTH BEDTIME 08/27/13 [History ] Montelukast [Singulair] 10 mg PO DAILY 08/27/13 [History] Omeprazole 20 mg PO DAILY 08/27/13 [History] Tiotropium [Spiriva Handihaler] 18 mcg INH DAILY 08/27/13 [History] Tamsulosin [Flomax] 0.8 mg PO BEDTIME 05/23/15 [History] Metoprolol Succinate [Toprol XL 50mg] 50 mg PO DAILY 12/15/15 [History] Aspirin [Halfprin] 81 mg PO DAILY #90 tab.ec 12/22/15 [Rx] Multivitamin with Minerals [Multiple Vitamin] 1 tab PO DAILY #30 tablet [Rx] Polyethylene Glycol 3350 [MiraLAX] 17 gm PO DAILY PRN 06/04/16 [History] Albuterol [Ventolin HFA] 2 puff INH Q6H PRN 06/06/16 [History] Carboxymethylcellulose Sodium [Refresh Tears] 1 drop EYEBOTH BEDTIME 06/06/16 [ History] Acetaminophen [Tylenol] 650 mg PO Q4H PRN 03/21/17 [History] Arformoterol [Brovana] 15 mcg NEB BID 03/21/17 [History] Finasteride [Proscar] 5 mg PO DAILY 03/21/17 [History] Albuterol/Ipratropium [DuoNeb 3.0-0.5 MG/3 ML] 3 ml INH Q8H PRN 02/17/19 [ History] QUEtiapine Fumarate [Seroquel] 400 mg PO BEDTIME 02/17/19 [History] QUEtiapine [SEROquel] 100 mg PO 0900,1700 02/17/19 [History] clonazePAM [Klonopin] 1 mg PO BID 02/17/19 [History] Referrals: Kobe Mckay, [employer] [Nurse Practitioner] - (earliest appointment [facility] next week) - Discharge Summary/Plan Comment DC Time >30 min.: Yes Discharge Summary/Plan Comment: final diagnosis Bronchitis, Multiple antibiotic allergy syndrome COPD, without acute exacerbation history 64 -year-old gentleman with long-standing end-stage COPD presenting to the ED via EMS with 2-day history of increased work of breathing shortness of breath with increased mucous production starting On day of admission, with accompanying nausea. blood cultures and sputum cultures were obtained in ED. patient does haveof long-standing COPD and is on LABA/LAMA/JOSSELYN, DEBORA, ICS, Singulair hospital course Patient's hospital course went well, no were started and watchful waiting due to the patient's good clinical and quick turnaround shortly after admission. white count trended down and normalize neutrophilia trended down, Pro calcitonin was normal, CRP trended favorably, sputum cleared up to a baseline white color, respiratory rate vital signs all stable. Patient felt much better, no fever. chest x-ray did not demonstrate pneumonia. He was given DVT prophylaxis along with pulm toileting, Spiriva and pulmicort were held. medication changes/adjustments None, for now Discharge/disposition/outpatient considerations Patient will be discharged from the hospital with close f/u next week. long discussion about patient's home medication in which appears duplicating meds with LABA/LAMA/JOSSELYN, DEBORA, ICS. if patient is adamant about staying on duo nebs likely will d/c Brovana and/or ICS. patient became quite anxious about any changes to home meds so will discuss this next week on f/u. --O/P allergy consult for ABX desensitiation consideration 2/2 Multiple antibiotic allergy syndrome - General Info Functional Status: Reports: Pain Controlled, Tolerating Diet, Incentive Spirometry. Denies: New Symptoms - Review of Systems General: Reports: No Symptoms HEENT: Reports: No Symptoms Pulmonary: Reports: Cough (baseline mild morning cough). Denies: Shortness of Breath, Wheezing Cardiovascular: Reports: No Symptoms Gastrointestinal: Reports: No Symptoms Psychiatric: Reports: Anxiety (mild anxiousness over potential medication changes) - Patient Data Vitals - Most Recent: Last Vital Signs Temp 97.6 F 02/19/19 07:00 Pulse 96 02/19/19 09:16 Resp 16 02/19/19 07:00 BP 129/73 02/19/19 09:16 Pulse Ox 97 02/19/19 07:00 Weight - Most Recent: 198 lb I&O - Last 24 hours: Intake & Output 02/18/19 02/19/19 02/19/19 22:59 06:59 14:59 Intake Total 600 0 Output Total 600 Balance 0 0 Lab Results - Last 24 hrs: Laboratory Results - last 24 hr 02/17/19 02/18/19 02/19/19 Range/Units 09:10 09:15 07:15 WBC 7.56 (5.00-10.00) 10^3/uL RBC 4.23 L (4.50-6.00) 10^6/uL Hgb 13.7 (13.0-17.0) g/dL Hct 40.9 (40.0-52.0) % MCV 96.7 H (82.0-92.0) fL MCH 32.4 H (27.0-31.0) pg MCHC 33.5 (32.0-36.0) g/dL RDW 13.6 (11.5-14.5) % Plt Count 123 L (150-400) 10^3/uL MPV 11.1 H (7.4-10.4) fL Immature Gran % (Auto) 0.1 (0.0-5.0) % Neut % (Auto) 80.5 H (50.0-70.0) % Lymph % (Auto) 10.2 L (20.0-40.0) % [place] % (Auto) 8.3 H (2.0-8.0) % Eos % (Auto) 0.9 L (1.0-3.0) % Baso % (Auto) 0.0 (0.0-1.0) % Immature Gran # (Auto) 0.01 (0.00-0.50) 10^3/uL Neut # (Auto) 6.08 (2.50-7.00) 10^3/uL Lymph # (Auto) 0.77 L (1.00-4.00) 10^3/uL [place] # (Auto) 0.63 (0.10-0.80) 10^3/uL Eos # (Auto) 0.07 L (0.10-0.30) 10^3/uL Baso # (Auto) 0.00 (0.00-0.10) 10^3/uL Neutrophils % (Manual) 87 H (50-70) % Lymphocytes % (Manual) 9 L (20-40) % Monocytes % (Manual) 4 (2-8) % Absolute Neutrophils 9.4917 Lymphocytes # (Manual) 0.9819 Monocytes # (Manual) 0.4364 C-Reactive Protein (0.0-0.9) mg/dL Procalcitonin 0.07 (<0.10) ng/mL 02/19/19 Range/Units 07:15 WBC (5.00-10.00) 10^3/uL RBC (4.50-6.00) 10^6/uL Hgb (13.0-17.0) g/dL Hct (40.0-52.0) % MCV (82.0-92.0) fL MCH (27.0-31.0) pg MCHC (32.0-36.0) g/dL RDW (11.5-14.5) % Plt Count (150-400) 10^3/uL MPV (7.4-10.4) fL Immature Gran % (Auto) (0.0-5.0) % Neut % (Auto) (50.0-70.0) % Lymph % (Auto) (20.0-40.0) % [place] % (Auto) (2.0-8.0) % Eos % (Auto) (1.0-3.0) % Baso % (Auto) (0.0-1.0) % Immature Gran # (Auto) (0.00-0.50) 10^3/uL Neut # (Auto) (2.50-7.00) 10^3/uL Lymph # (Auto) (1.00-4.00) 10^3/uL [place] # (Auto) (0.10-0.80) 10^3/uL Eos # (Auto) (0.10-0.30) 10^3/uL Baso # (Auto) (0.00-0.10) 10^3/uL Neutrophils % (Manual) (50-70) % Lymphocytes % (Manual) (20-40) % Monocytes % (Manual) (2-8) % Absolute Neutrophils Lymphocytes # (Manual) Monocytes # (Manual) C-Reactive Protein 7.3 H (0.0-0.9) mg/dL Procalcitonin (<0.10) ng/mL [facility] Results - Last 24 hrs: Microbiology 02/17/19 11:30 Respiratory Culture - Preliminary Sputum - Expectorated Gram Stain - Final 02/17/19 09:45 Aerobic Blood Culture - Preliminary Blood - Venous - Lab Draw NO GROWTH AFTER 1 DAY Anaerobic Blood Culture - Preliminary NO GROWTH AFTER 1 DAY 02/17/19 09:39 Aerobic Blood Culture - Preliminary Blood - Venous NO GROWTH AFTER 1 DAY Anaerobic Blood Culture - Preliminary NO GROWTH AFTER 1 DAY Med Orders - Current: Current Medications Acetaminophen (Tylenol) 650 mg PO Q4H PRN PRN Reason: Pain Albuterol/Ipratropium (Duoneb 3.0-0.5 Mg/3 Ml) 3 ml NEB Q6HRRT [facility] Last Admin: 02/19/19 08:59 Dose: 3 ml Alprazolam (Xanax) 0.25 mg PO NOW ONE Stop: 02/19/19 09:37 Artificial Tears (Refresh Tears 0.5%) 0 ml EYEBOTH BEDTIME [facility] Last Admin: 02/18/19 20:05 Dose: Not Given Aspirin (Halfprin) 81 mg PO DAILY [facility] Last Admin: 02/19/19 09:00 Dose: 81 mg Clonazepam (Klonopin) 1 mg PO BID [facility] Last Admin: 02/19/19 09:00 Dose: 1 mg Escitalopram Oxalate (Lexapro) 20 mg PO DAILY [facility] Finasteride (Proscar) 5 mg PO DAILY [facility] Last Admin: 02/19/19 09:00 Dose: 5 mg Heparin Sodium (Porcine) (Heparin Sodium) 5,000 units SUBCUT 0800,2000 [facility] Last Admin: 02/19/19 08:59 Dose: 5,000 units Latanoprost (Xalatan 0.005% Ophth Soln) 0 ml EYEBOTH BEDTIME [facility] Last Admin: 02/18/19 20:05 Dose: 1 drop Metoprolol Succinate (Toprol Xl) 50 mg PO DAILY [facility] Last Admin: 02/19/19 09:16 Dose: 50 mg Montelukast Sodium (Singulair) 10 mg PO DAILY [facility] Last Admin: 02/19/19 09:00 Dose: 10 mg Omeprazole (Omeprazole) 20 mg PO ACBREAKFAST [facility] Last Admin: 02/19/19 09:00 Dose: 20 mg Polyethylene Glycol (Miralax) 17 gm PO DAILY PRN PRN Reason: Constipation Quetiapine Fumarate (Seroquel) 100 mg PO 0900,1700 [facility] Last Admin: 02/19/19 09:10 Dose: 100 mg Quetiapine Fumarate (Seroquel) 400 mg PO BEDTIME [facility] Last Admin: 02/18/19 20:04 Dose: 400 mg Sodium Chloride (Saline Flush) 10 ml FLUSH Q8HR PRN PRN Reason: keep vein open Tamsulosin HCl (Flomax) 0.8 mg PO BEDTIME [facility] Last Admin: 02/18/19 20:04 Dose: 0.8 mg Discontinued Medications Acetaminophen (Tylenol) 650 mg PO NOW ONE Stop: 02/17/19 10:04 Last Admin: 02/17/19 10:11 Dose: 650 mg Albuterol/Ipratropium (Duoneb 3.0-0.5 Mg/3 Ml) 3 ml NEB ONETIME ONE Stop: 02/17/19 09:30 Last Admin: 02/17/19 09:32 Dose: 3 ml Albuterol/Ipratropium (Duoneb 3.0-0.5 Mg/3 Ml) Confirm Administered Dose 3 ml .ROUTE .STK-MED ONE Stop: 02/17/19 09:29 Last Admin: 02/17/19 09:32 Dose: Not Given Albuterol/Ipratropium (Duoneb 3.0-0.5 Mg/3 Ml) 3 ml NEB Q4HRRT [facility] Last Admin: 02/18/19 08:34 Dose: 3 ml Heparin Sodium (Porcine) (Heparin Sodium) 5,000 units SUBCUT Q12H [place] Last Admin: 02/17/19 14:25 Dose: Not Given Sodium Chloride (Normal Saline) 1,000 mls @ 999 mls/hr IV .BOLUS ONE Stop: 02/17/19 10:29 Last Admin: 02/17/19 09:32 Dose: 999 mls/hr Methylprednisolone Sodium Succinate (Solu-Medrol) 125 mg IVPUSH ONETIME ONE Stop: 02/17/19 09:31 Last Admin: 02/17/19 09:41 Dose: 125 mg - Exam Quality Assessment: Reports: Supplemental Oxygen, DVT Prophylaxis General: Reports: Alert, Oriented, Mild Distress Lungs: Reports: Decreased Breath Sounds
[2019-02-19 12:23] VITALS: PULSE 107
== END 2019-02-19 12:05 | disposition home or self-care (01) | DRG 192 ==
LOC: KA.ED 09:13 → KA.MS 10:56
PROVIDERS: ADMIT Physician Assistant Surgical; ATTEND Family Medicine
DX: J44.0 Chronic obstructive pulmonary disease with (acute) lower respiratory infection (principal); J18.9 Pneumonia, unspecified organism; J44.1 Chronic obstructive pulmonary disease with (acute) exacerbation; Z87.01 Personal history of pneumonia (recurrent); H54.7 Unspecified visual loss; K21.9 Gastro-esophageal reflux disease without esophagitis; N40.0 Benign prostatic hyperplasia without lower urinary tract symptoms; G89.29 Other chronic pain; F41.0 Panic disorder [episodic paroxysmal anxiety]; D72.0 Genetic anomalies of leukocytes; I10 Essential (primary) hypertension; F32.9 Major depressive disorder, single episode, unspecified; F25.9 Schizoaffective disorder, unspecified; M54.9 Dorsalgia, unspecified; Z91.048 Other nonmedicinal substance allergy status; M54.2 Cervicalgia; Z79.899 Other long term (current) drug therapy; F41.9 Anxiety disorder, unspecified; E55.9 Vitamin D deficiency, unspecified; Z87.891 Personal history of nicotine dependence; Z77.021 Contact with and (suspected) exposure to benzene; Z88.1 Allergy status to other antibiotic agents; Z88.2 Allergy status to sulfonamides; Z88.8 Allergy status to other drugs, medicaments and biological substances; Z91.018 Allergy to other foods; Z79.82 Long term (current) use of aspirin; Z79.51 Long term (current) use of inhaled steroids
CPT/HCPCS: 36415; 71046; 80053; 83605; 84145; 85025; 86140; 87040 ×2; 94640; 96361; 96374; 99285; A9270; J2930; J7030; 87070; 87076; 87205; 99284; J1644; J7620-GY

== ENCOUNTER 2019-02-20 10:24 | Emergency (ER) | payer MEDICARE, MEDICAID ==
[2019-02-20] MEDS ORDERED: methylPREDNISolone Sodium Succinate 125 MG/2 ML SDV IVPUSH ONE (10:55)
[2019-02-20 11:23] LABS: CHLORIDE,CL 102 mmol/L (98-115); SODIUM,NA 141 mmol/L (136-145)
--- NOTE | 2019-02-20 11:27 | CR ---
[id number] RAD/RAD Chest PA And Lateral EXAM: FRONTAL AND LATERAL CHEST INDICATION: Chronic obstructive pulmonary disease and shortness of breath. COMPARISON: February 17, 2019. DISCUSSION: Increased mild to moderate left lower lobe infiltrates in the posterior basal aspect. Unless clinically indicated sooner, an 8 week follow-up examination is suggested to exclude other underlying pathology. Hyperinflation is consistent with the clinical history of chronic obstructive pulmonary disease. Chronic nodular scarring in the lung apices has not appreciably changed. IMPRESSION: 1. New or increased posterior basal left lower lobe infiltrates. Follow-up is suggested to exclude other underlying pathology. Adryan Nieto MD 02/20/19 1126 Thank you for allowing us to participate in the care of your patient.
--- NOTE | 2019-02-20 12:32 | EDM.PDOC ---
ED HPI GENERAL MEDICAL PROBLEM - General Chief Complaint: Respiratory Problem Stated Complaint: dyspnea, dizzy, weakness Time Seen by Provider: 02/20/19 10:30 Source of Information: Reports: Patient, EMS Notes Reviewed, Family History Limitations: Reports: No Limitations - History of Present Illness INITIAL COMMENTS - FREE TEXT/NARRATIVE: 64-year-old male well-established to the [facility] and [facility] presents to emergency room with pronounced weakness and shortness of breath. Patient has a long history of a significant advanced COPD. He is on home oxygen. He had a recent admission to the [facility] and was discharged yesterday. He uses a scooter when he is outside. He does not have a cane or walker at home. He has significant difficulty being able to maintain his ADLs. He feels he has a pronounced weakness and almost falls when he has to do activities such as going to the bathroom or even standing up. He is been afebrile but had a low-grade temperature with arrival of the EMS. He's temperature was 98.8 with a nursing check in the emergency room. His significant other is unable to provide any care for him due to his size and her own health problems. She is on a walker herself. His O2 saturations with 1-1/2 L remain in the mid 90s. He has poor airway exchange with auscultation which is chronic. There is mild expiratory wheezing but no crackles in his lungs are at the bases. He was given a nebulizer treatment and IV Solu-Medrol 125 mg today. Onset: Unknown/Unsure Duration: Chronic, Getting Worse Location: Reports: Chest Severity: Moderate Improves with: Reports: Rest, Other (Home oxygen) Worsens with: Reports: Movement Associated Symptoms: Reports: Shortness of Breath, Weakness. Denies: Diaphoresis Treatments CENA: Reports: Home Treatments, Other Medication(s), Oxygen - Related Data Allergies Allergy/AdvReac Type Severity Reaction Status Date / Time azithromycin [From Zithromax] Allergy Cannot Verified 02/20/19 10:34 Remember cephalexin monohydrate Allergy Cannot Verified 02/20/19 10:34 [From Keflex] Remember ciprofloxacin Allergy Rash Verified 02/20/19 10:34 diphenhydramine HCl Allergy Rash Verified 02/20/19 10:34 [From Benadryl] doxycycline Allergy Dizziness Verified 02/20/19 10:34 levofloxacin [From Levaquin] Allergy Cannot Verified 02/20/19 10:34 Remember piperacillin sodium Allergy Wheezing Verified 02/20/19 10:34 [From Zosyn] Sulfa (Sulfonamide Allergy Rash Verified 02/20/19 10:34 Antibiotics) tazobactam sodium Allergy Wheezing Verified 02/20/19 10:34 [From Zosyn] vancomycin Allergy Cannot Verified 02/20/19 10:34 Remember Onions Allergy Mild Rash Uncoded 02/20/19 10:34 Peppers Allergy Unknown Rash Uncoded 02/20/19 10:34 Soap Allergy Unknown Itching Uncoded 02/20/19 10:34 Home Meds: Home Meds Budesonide [Pulmicort] 0.5 mg INH 0700,2200 08/27/13 [History] Cholecalciferol (Vitamin D3) [Vitamin D3] 1,000 units PO DAILY 08/27/13 [History ] Escitalopram [Lexapro] 20 mg PO DAILY 08/27/13 [History] Latanoprost [Xalatan 0.005% Oph Soln] 1 drop EYEBOTH BEDTIME 08/27/13 [History ] Montelukast [Singulair] 10 mg PO DAILY 08/27/13 [History] Omeprazole 20 mg PO DAILY 08/27/13 [History] Tiotropium [Spiriva Handihaler] 18 mcg INH DAILY 08/27/13 [History] Tamsulosin [Flomax] 0.8 mg PO BEDTIME 05/23/15 [History] Metoprolol Succinate [Toprol XL 50mg] 50 mg PO DAILY 12/15/15 [History] Aspirin [Halfprin] 81 mg PO DAILY #90 tab.ec 12/22/15 [Rx] Multivitamin with Minerals [Multiple Vitamin] 1 tab PO DAILY #30 tablet [Rx] Polyethylene Glycol 3350 [MiraLAX] 17 gm PO DAILY PRN 06/04/16 [History] Albuterol [Ventolin HFA] 2 puff INH Q6H PRN 06/06/16 [History] Carboxymethylcellulose Sodium [Refresh Tears] 1 drop EYEBOTH BEDTIME 06/06/16 [ History] Acetaminophen [Tylenol] 650 mg PO Q4H PRN 03/21/17 [History] Arformoterol [Brovana] 15 mcg NEB BID 03/21/17 [History] Finasteride [Proscar] 5 mg PO DAILY 03/21/17 [History] Albuterol/Ipratropium [DuoNeb 3.0-0.5 MG/3 ML] 3 ml INH Q8H PRN 02/17/19 [ History] QUEtiapine Fumarate [Seroquel] 400 mg PO BEDTIME 02/17/19 [History] QUEtiapine [SEROquel] 100 mg PO 0900,1700 02/17/19 [History] clonazePAM [Klonopin] 1 mg PO BID 02/17/19 [History] Past Medical History HEENT History: Reports: Glaucoma, Impaired Vision Cardiovascular History: Reports: SOB on Exertion Respiratory History: Reports: Asthma, Bronchitis, Recurrent, COPD, Pneumonia, Recurrent, SOB Other Respiratory History: history of fungal lung infection Gastrointestinal History: Reports: GERD Genitourinary History: Reports: BPH, Prostate Disorder Other Genitourinary History: cystitis without hematuria Musculoskeletal History: Reports: Back Pain, Chronic, Neck Pain, Chronic Neurological History: Reports: Other (See Below) Other Neuro History: chronic shaking Psychiatric History: Reports: Anxiety, Depression, Panic Attack Endocrine/Metabolic History: Reports: Vitamin D Deficiency, Other (See Below) Other Endocrine/Metabolic History: thyroid nodule,nontoxic uninodular goiter Hematologic History: Reports: Other (See Below) Other Hematologic History: platelet transfusion Immunologic History: Reports: None Oncologic (Cancer) History: Reports: None Dermatologic History: Reports: None - Infectious Disease History Infectious Disease History: Reports: Measles, Mumps, Rubella - Past Surgical History Cardiovascular Surgical History: Reports: None Other Respiratory Surgeries/Procedures: bronchoscopy GI Surgical History: Reports: Hernia, Inguinal Dermatological Surgical History: Reports: None Social & Family History - Family History Family Medical History: Noncontributory - Tobacco Use Smoking Status *Q: Former Smoker Used Tobacco, but Quit: Yes Month/Year Tobacco Last Used: 10 - Caffeine Use Caffeine Use: Reports: Coffee - Recreational Drug Use Recreational Drug Use: No ED ROS GENERAL - Review of Systems Review Of Systems: See Below Constitutional: Reports: Weakness, Fatigue HEENT: Reports: No Symptoms Respiratory: Reports: Shortness of Breath, Wheezing, Cough, Sputum Cardiovascular: Reports: Dyspnea on Exertion. Denies: Chest Pain Endocrine: Reports: No Symptoms GI/Abdominal: Reports: No Symptoms : Reports: No Symptoms Musculoskeletal: Reports: No Symptoms Skin: Denies: Cyanosis Neurological: Reports: Weakness Psychiatric: Reports: Anxiety Hematologic/Lymphatic: Reports: No Symptoms Immunologic: Reports: No Symptoms ED EXAM, GENERAL - Physical Exam Exam: See Below Exam Limited By: No Limitations General Appearance: Alert, Anxious, Thin Eye Exam: Bilateral Eye: EOMI Ears: Hearing Grossly Normal Nose: Normal Inspection Throat/Mouth: Normal Inspection, Normal Voice, No Airway Compromise. No: Perioral Cyanosis Head: Atraumatic, Normocephalic Neck: Normal Inspection, Supple Respiratory/Chest: Lungs Clear, Decreased Breath Sounds, Wheezing. No: Accessory Muscle Use, Retractions, Splinting Cardiovascular: Regular Rate, Rhythm GI/Abdominal: Soft Back Exam: Normal Inspection Extremities: Normal Inspection Neurological: Alert, Oriented, No Motor/Sensory Deficits Psychiatric: Depressed Mood Skin Exam: Warm, Dry, Intact, Normal Color, No Rash. No: Cyanosis Lymphatic: No Adenopathy Course - Vital Signs Last Recorded V/S: Last Vital Signs Temp 98.0 F 02/20/19 10:28 Pulse 86 02/20/19 12:09 Resp 20 02/20/19 12:09 BP 121/75 02/20/19 12:09 Pulse Ox 97 02/20/19 12:09 - Orders/Labs/Meds Labs: Laboratory Tests 02/20/19 02/20/19 Range/Units 11:00 11:00 WBC 7.16 (5.00-10.00) 10^3/uL RBC 4.65 (4.50-6.00) 10^6/uL Hgb 15.1 (13.0-17.0) g/dL Hct 44.7 (40.0-52.0) % MCV 96.1 H (82.0-92.0) fL MCH 32.5 H (27.0-31.0) pg MCHC 33.8 (32.0-36.0) g/dL RDW 13.4 (11.5-14.5) % Plt Count 143 L (150-400) 10^3/uL MPV 10.3 (7.4-10.4) fL Immature Gran % (Auto) 0.1 (0.0-5.0) % Neut % (Auto) 81.5 H (50.0-70.0) % Lymph % (Auto) 7.8 L (20.0-40.0) % [place] % (Auto) 10.2 H (2.0-8.0) % Eos % (Auto) 0.4 L (1.0-3.0) % Baso % (Auto) 0.0 (0.0-1.0) % Immature Gran # (Auto) 0.01 (0.00-0.50) 10^3/uL Neut # (Auto) 5.83 (2.50-7.00) 10^3/uL Lymph # (Auto) 0.56 L (1.00-4.00) 10^3/uL [place] # (Auto) 0.73 (0.10-0.80) 10^3/uL Eos # (Auto) 0.03 L (0.10-0.30) 10^3/uL Baso # (Auto) 0.00 (0.00-0.10) 10^3/uL Sodium 141 (136-145) mmol/L Potassium 3.5 (3.3-5.3) mmol/L Chloride 102 (98-115) mmol/L Carbon Dioxide 31.5 (21.0-32.0) mmol/L Anion Gap 11.0 (5-15) mmol/L BUN 16 (6-25) mg/dL Creatinine 0.76 (0.51-1.17) mg/dL Est Cr Clr Drug Dosing 115.01 mL/min Estimated GFR (MDRD) > 60 mL/min Glucose 147 H (75 - 99) mg/dL Calcium 8.9 (8.7-10.3) mg/dL Meds: Medications Discontinued Medications Generic Name Dose Route Start Last Admin Trade Name Freq PRN Reason Stop Dose Admin Methylprednisolone Sodium Succinate 125 mg 02/20/19 10:55 02/20/19 11:08 Solu-Medrol IVPUSH 02/20/19 10:56 125 mg ONETIME ONE Administration - Radiology Interpretation Free Text/Narrative:: Chest x-ray frontal and lateral chest Discussion: Increased mild to moderate left lobe infiltrates in the posterior basal aspect. Hyperinflation is consistent with that clinical history of chronic obstructive pulmonary disease. Chronic nodular scarring in the lung apices has not appreciably changed. Impression: Increased posterior basal left lower lobe infiltrates. 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 flowers current living situation. He has severe COPD and is unable to provide himself with even basic ADLs due to his weakness and severity of his COPD. His is unable to care for Ms. she has her own health and medical issues. Will plan on placing patient in a swing bed facility he is likely going to need extended care with fdc placement.
[2019-02-20 13:47] VITALS: BP 125/72; PULSE 88
== END 2019-02-20 13:47 | disposition swing bed (61) ==
LOC: KA.ED 10:24
DX: J44.9 Chronic obstructive pulmonary disease, unspecified (principal); R53.1 Weakness; F41.9 Anxiety disorder, unspecified; F32.9 Major depressive disorder, single episode, unspecified; J45.909 Unspecified asthma, uncomplicated; K21.9 Gastro-esophageal reflux disease without esophagitis; Z87.891 Personal history of nicotine dependence; Z88.8 Allergy status to other drugs, medicaments and biological substances; Z79.899 Other long term (current) drug therapy
CPT/HCPCS: 36415; 71046; 80048; 85025; 96374; 99284; 99285; J2930

== ENCOUNTER 2019-02-20 14:00 | Inpatient (IN) | payer MEDICARE, MEDICAID ==
[2019-02-20] MEDS ORDERED: Acetaminophen 325 MG Tab PO PRN (22:09)
[2019-02-20] MEDS ORDERED: Polyethylene Glycol 3350 Powder 17 GM Packet PO PRN (22:09)
[2019-02-20] MEDS ORDERED: Albuterol 8 GM Inhaler INH PRN (22:09)
[2019-02-20] MEDS ORDERED: Ondansetron 4 MG Tab.DIS PO PRN (22:12)
[2019-02-20] MEDS ORDERED: ALPRAZolam 0.25 MG Tab PO PRN (22:27)
[2019-02-20] MEDS: LATANOPROST 0.005% EYEBOTH SCH (23:16)
[2019-02-20] MEDS: IPRATROPIUM INH PRN (23:16)
[2019-02-20] MEDS: ALBUTEROL INH PRN (23:16)
[2019-02-21] MEDS: Omeprazole 20 MG Cap.CR**PT OWN PO SCH (06:13)
[2019-02-21] MEDS: BUDESONIDE 0.5 MG/2 ML INH SCH ×2 (06:18→21:40)
[2019-02-21] MEDS: Cholecalciferol (Vitamin D3) 25 MCG Tab PO SCH (08:33)
[2019-02-21] MEDS: ASPIRIN 81 MG PO SCH (08:33)
[2019-02-21] MEDS: Multivitamins with Minerals/Iron/Folic Acid/Lycopene Tab PO SCH (08:34)
[2019-02-21] MEDS: QUETIAPINE 100 MG PO SCH ×2 (08:35→17:23)
[2019-02-21] MEDS: FINASTERIDE 5 MG PO SCH (08:36)
[2019-02-21] MEDS: CLONAZEPAM 1 MG PO SCH ×2 (08:36→21:33)
[2019-02-21] MEDS: MONTELUKAST 10 MG PO SCH (08:36)
[2019-02-21] MEDS: ARFORMOTEROL 15 MCG/2 ML NEB SCH ×2 (08:37→21:40)
[2019-02-21] MEDS: Metoprolol Succinate 50 MG Tab.ER**PT OWN PO SCH (08:37)
[2019-02-21] MEDS: TIOTROPIUM 18 MCG INH SCH (09:35)
[2019-02-21] MEDS: IPRATROPIUM INH PRN (17:24)
[2019-02-21] MEDS: ALBUTEROL INH PRN (17:24)
[2019-02-21] MEDS ORDERED: Tamsulosin 0.4 MG Cap.ER**PT OWN PO SCH (21:00)
[2019-02-21] MEDS: LATANOPROST 0.005% EYEBOTH SCH (21:33)
[2019-02-21] MEDS: QUETIAPINE 200 MG PO SCH (21:35)
[2019-02-22] MEDS: Omeprazole 20 MG Cap.CR**PT OWN PO SCH (06:05)
[2019-02-22] MEDS: BUDESONIDE 0.5 MG/2 ML INH SCH ×2 (06:10→21:07)
[2019-02-22] MEDS: Cholecalciferol (Vitamin D3) 25 MCG Tab PO SCH (09:04)
[2019-02-22] MEDS: Multivitamins with Minerals/Iron/Folic Acid/Lycopene Tab PO SCH (09:04)
[2019-02-22] MEDS: TIOTROPIUM 18 MCG INH SCH (09:04)
[2019-02-22] MEDS: ASPIRIN 81 MG PO SCH (09:07)
[2019-02-22] MEDS: Metoprolol Succinate 50 MG Tab.ER**PT OWN PO SCH (09:08)
[2019-02-22] MEDS: CLONAZEPAM 1 MG PO SCH ×2 (09:08→21:07)
[2019-02-22] MEDS: MONTELUKAST 10 MG PO SCH (09:09)
[2019-02-22] MEDS: FINASTERIDE 5 MG PO SCH (09:09)
[2019-02-22] MEDS: QUETIAPINE 100 MG PO SCH ×2 (09:09→17:35)
[2019-02-22] MEDS: ARFORMOTEROL 15 MCG/2 ML NEB SCH ×2 (09:11→21:00)
--- NOTE | 2019-02-22 10:04 | PCM.HP ---
H&P History of Present Illness - General Date of Service: 02/20/19 Admit Problem/Dx: Admission Diagnosis/Problem Admission Diagnosis/Problem Weakness of left lower extremity Source of Information: Patient, Old Records, Provider, RN, Significant Other - Related Data Allergies/Adverse Reactions: Allergies Allergy/AdvReac Type Severity Reaction Status Date / Time azithromycin [From Zithromax] Allergy Cannot Verified 02/20/19 10:34 Remember cephalexin monohydrate Allergy Cannot Verified 02/20/19 10:34 [From Keflex] Remember ciprofloxacin Allergy Rash Verified 02/20/19 10:34 diphenhydramine HCl Allergy Rash Verified 02/20/19 10:34 [From Benadryl] doxycycline Allergy Dizziness Verified 02/20/19 10:34 levofloxacin [From Levaquin] Allergy Cannot Verified 02/20/19 10:34 Remember piperacillin sodium Allergy Wheezing Verified 02/20/19 10:34 [From Zosyn] Sulfa (Sulfonamide Allergy Rash Verified 02/20/19 10:34 Antibiotics) tazobactam sodium Allergy Wheezing Verified 02/20/19 10:34 [From Zosyn] vancomycin Allergy Cannot Verified 02/20/19 10:34 Remember Onions Allergy Mild Rash Uncoded 02/20/19 10:34 Peppers Allergy Unknown Rash Uncoded 02/20/19 10:34 Soap Allergy Unknown Itching Uncoded 02/20/19 10:34 Home Medications: Home Meds Budesonide [Pulmicort] 0.5 mg INH 0700,2200 08/27/13 [History] Cholecalciferol (Vitamin D3) [Vitamin D3] 1,000 units PO DAILY 08/27/13 [History ] Latanoprost [Xalatan 0.005% Ophth Soln] 1 drop EYEBOTH BEDTIME 08/27/13 [History ] Montelukast [Singulair] 10 mg PO DAILY 08/27/13 [History] Omeprazole 20 mg PO DAILY 08/27/13 [History] Tiotropium [Spiriva Handihaler] 18 mcg INH DAILY 08/27/13 [History] Tamsulosin [Flomax] 0.8 mg PO BEDTIME 05/23/15 [History] Metoprolol Succinate [Toprol XL 50mg] 50 mg PO DAILY 12/15/15 [History] Aspirin [Halfprin] 81 mg PO DAILY #90 tab.ec 05/20/16 [Rx] Multivitamin with Minerals [Multiple Vitamin] 1 tab PO DAILY #30 tablet [Rx] Polyethylene Glycol 3350 [MiraLAX] 17 gm PO DAILY PRN 06/04/16 [History] Albuterol [Ventolin HFA] 2 puff INH Q6H PRN 06/06/16 [History] Acetaminophen [Tylenol] 650 mg PO Q4H PRN 03/21/17 [History] Arformoterol [Brovana] 15 mcg NEB BID 03/21/17 [History] Finasteride [Proscar] 5 mg PO DAILY 03/21/17 [History] Albuterol/Ipratropium [DuoNeb 3.0-0.5 MG/3 ML] 3 ml INH Q8H PRN 02/17/19 [ History] QUEtiapine Fumarate [Seroquel] 400 mg PO BEDTIME 02/17/19 [History] QUEtiapine [SEROquel] 100 mg PO 0900,1700 02/17/19 [History] clonazePAM [Klonopin] 1 mg PO BID 02/17/19 [History] Past Medical History HEENT History: Reports: Glaucoma, Impaired Vision Cardiovascular History: Reports: SOB on Exertion Respiratory History: Reports: Asthma, Bronchitis, Recurrent, COPD, Pneumonia, Recurrent, SOB Other Respiratory History: history of fungal lung infection Gastrointestinal History: Reports: GERD Genitourinary History: Reports: BPH, Prostate Disorder Other Genitourinary History: cystitis without hematuria Musculoskeletal History: Reports: Back Pain, Chronic, Neck Pain, Chronic Neurological History: Reports: Other (See Below) Other Neuro History: chronic shaking Psychiatric History: Reports: Anxiety, Depression, Panic Attack Endocrine/Metabolic History: Reports: Vitamin D Deficiency, Other (See Below) Other Endocrine/Metabolic History: thyroid nodule,nontoxic uninodular goiter Hematologic History: Reports: Other (See Below) Other Hematologic History: platelet transfusion Immunologic History: Reports: None Oncologic (Cancer) History: Reports: None Dermatologic History: Reports: None - Infectious Disease History Infectious Disease History: Reports: Measles, Mumps, Rubella - Past Surgical History Head Surgeries/Procedures: Reports: None HEENT Surgical History: Reports: None Cardiovascular Surgical History: Reports: None Respiratory Surgical History: Reports: Lung Biopsies Other Respiratory Surgeries/Procedures: bronchoscopy, biopsy 2012 GI Surgical History: Reports: Hernia, Inguinal Male Surgical History: Reports: None Musculoskeletal Surgical History: Reports: None Oncologic Surgical History: Reports: None Dermatological Surgical History: Reports: None Social & Family History - Family History Family Medical History: Noncontributory (reviewed and noncontributory) - Tobacco Use Smoking Status *Q: Former Smoker Years of Tobacco use: 28 Packs/Tins Daily: 1.5 Used Tobacco, but Quit: Yes Month/Year Tobacco Last Used: 2004 - Caffeine Use Caffeine Use: Reports: Coffee - Recreational Drug Use Recreational Drug Use: No H&P Review of Systems - Review of Systems: Review Of Systems: See Below General: Reports: Weakness, Fatigue. Denies: Fever, Chills, Malaise, Night Sweats, Diaphoresis, Weight Loss, Weight Gain HEENT: Reports: No Symptoms Pulmonary: Denies: Shortness of Breath, Cough, Sputum Cardiovascular: Reports: Dyspnea on Exertion Gastrointestinal: Reports: No Symptoms Genitourinary: Reports: No Symptoms Musculoskeletal: Reports: No Symptoms Skin: Reports: No Symptoms Psychiatric: Reports: Agitation Neurological: Reports: Pre-Existing Deficit, Gait Disturbance Hematologic/Lymphatic: Reports: No Symptoms Immunologic: Reports: No Symptoms Exam - Exam Exam: See Below - Vital Signs Vital Signs: Last Vital Signs Temp 97.8 F 02/22/19 06:16 Pulse 82 02/22/19 09:12 Resp 16 02/22/19 06:16 BP 103/75 02/22/19 09:08 Pulse Ox 97 02/22/19 09:12 Weight: 180 lb 9.6 oz - Exam Quality Assessment: Supplemental Oxygen. No: DVT Prophylaxis General: Alert, Oriented, Mild Distress. No: Sedated, Lethargic, Obtunded HEENT: Mucosa Moist & [place] Neck: Supple, Trachea Midline, 2 Lungs: Decreased Breath Sounds. No: Rales, Rhonchi, Wheezing Cardiovascular: Regular Rate, Regular Rhythm GI/Abdominal Exam: Soft (Male) Exam: Deferred Rectal (Males) Exam: Deferred Back Exam: No: CVA Tenderness (L), CVA Tenderness (R) Extremities: No Pedal Edema Peripheral Pulses: 2+: Radial (L), Radial (R) Skin: Warm, Dry, Intact Neurological: Cranial Nerves Intact, Reflexes Equal Bilateral Neuro Extensive - Mental Status: Alert, Oriented x3, Normal Mood/Affect, Normal Cognition Neuro Extensive - Motor, Sensory, Reflexes: CN II-XII Intact, Normal Gait, Normal Reflexes Psychiatric: Anxious - Patient Data Result Diagrams: 02/23/19 07:20 02/23/19 07:20 Problem List Initiated/Reviewed/Updated: Yes Orders Last 24hrs: Active Orders 24 hr Category Date Time Status Antiembolic Devices [RC] PER UNIT ROUTINE Care 02/21/19 10:16 Active Arformoterol [Brovana] Med 02/21/19 09:00 Active 15 mcg NEB BID Aspirin [Halfprin] Med 02/21/19 09:00 Active 81 mg PO DAILY Cholecalciferol (Vitamin D3) [Vitamin D3] Med 02/21/19 09:00 Active 25 mcg PO DAILY FA/Lycopene/Lut/MV,Ca,Iron,Min [Centrum] Med 02/21/19 09:00 Active 1 tab PO DAILY Finasteride [Proscar] Med 02/21/19 09:00 Active 5 mg PO DAILY Metoprolol Succinate [Toprol XL] Med 02/21/19 09:00 Active 50 mg PO DAILY Montelukast [Singulair] Med 02/21/19 09:00 Active 10 mg PO DAILY Non-Formulary Medication [NF Drug] Med 02/21/19 09:00 Active 1 each PO BID QUEtiapine Fumarate [Seroquel] Med 02/21/19 21:00 Active 400 mg PO BEDTIME QUEtiapine [SEROquel] Med 02/21/19 09:00 Active 100 mg PO 0900,1700 Tamsulosin [Flomax] Med 02/21/19 21:00 Active 0.8 mg PO BEDTIME Tiotropium [Spiriva Handihaler] Med 02/21/19 09:00 Active 18 mcg INH DAILY LIBBY Hose [Antiembolic Hose] [OM.PC] Routine Oth 02/21/19 10:16 Ordered Medication Orders Acetaminophen (Tylenol) 650 mg PO Q4H PRN PRN Reason: Pain Albuterol (Ventolin Hfa) 0 gm INH Q6H PRN PRN Reason: Shortness of Breath Albuterol/Ipratropium (Duoneb 3.0-0.5 Mg/3 Ml) 3 ml INH Q8H PRN PRN Reason: Shortness of Breath Last Admin: 02/21/19 17:24 Dose: 3 ml Admin: 02/20/19 23:16 Dose: 3 ml Alprazolam (Xanax) 0.25 mg PO Q24H PRN PRN Reason: Anxiety Arformoterol Tartrate (Brovana) 15 mcg NEB BID [facility] Last Admin: 02/22/19 09:11 Dose: 15 mcg Admin: 02/21/19 21:40 Dose: 15 mcg Admin: 02/21/19 08:37 Dose: 15 mcg Aspirin (Halfprin) 81 mg PO DAILY [facility] Last Admin: 02/22/19 09:07 Dose: 81 mg Admin: 02/21/19 08:33 Dose: 81 mg Budesonide (Pulmicort) 0.5 mg INH 0700,0 [facility] Last Admin: 02/22/19 06:10 Dose: 0.5 mg Admin: 02/21/19 21:40 Dose: 0.5 mg Admin: 02/21/19 06:18 Dose: 0.5 mg Cholecalciferol (Vitamin D3) 25 mcg PO DAILY [facility] [place] Last Admin: 02/22/19 09:04 Dose: 25 mcg Admin: 02/21/19 08:33 Dose: 25 mcg Finasteride (Proscar) 5 mg PO DAILY [facility] [place] Last Admin: 02/22/19 09:09 Dose: 5 mg Admin: 02/21/19 08:36 Dose: 5 mg Latanoprost (Xalatan 0.005% Ophth Soln) 0 ml EYEBOTH BEDTIME [facility] Last Admin: 02/21/19 21:33 Dose: 1 drop Admin: 02/20/19 23:16 Dose: 1 drop Metoprolol Succinate (Toprol Xl) 50 mg PO DAILY [facility] Last Admin: 02/22/19 09:08 Dose: 50 mg Admin: 02/21/19 08:37 Dose: 50 mg Montelukast Sodium (Singulair) 10 mg PO DAILY [facility] [place] Last Admin: 02/22/19 09:09 Dose: 10 mg Admin: 02/21/19 08:36 Dose: 10 mg Multivitamins/Minerals (Centrum) 1 tab PO DAILY [facility] Last Admin: 02/22/19 09:04 Dose: 1 tab Admin: 02/21/19 08:34 Dose: 1 tab Clonazepam 1mg Pt (Own) 1 each PO BID [facility] Last Admin: 02/22/19 09:08 Dose: 1 each Admin: 02/21/19 21:33 Dose: 1 each Admin: 02/21/19 08:36 Dose: 1 each Quetiapine 200mg (Pt Own) 400 mg PO BEDTIME [facility] Last Admin: 02/21/19 21:35 Dose: 400 mg Omeprazole (Omeprazole) 20 mg PO ACBREAKFAST@0700 [facility] Last Admin: 02/22/19 06:05 Dose: 20 mg Admin: 02/21/19 06:13 Dose: 20 mg Ondansetron HCl (Zofran Odt) 4 mg PO Q4H PRN PRN Reason: nausea, able to take PO Polyethylene Glycol (Miralax) 17 gm PO DAILY PRN PRN Reason: Constipation Quetiapine Fumarate (Seroquel) 100 mg PO 0900,1700 [facility] Last Admin: 02/22/19 09:09 Dose: 100 mg Admin: 02/21/19 17:23 Dose: 100 mg Admin: 02/21/19 08:35 Dose: 100 mg Ramelteon (Rozerem) 8 mg PO BEDTIME [facility] [place] Last Admin: 02/21/19 21:33 Dose: 8 mg Admin: 02/20/19 23:24 Dose: 8 mg Tamsulosin HCl (Flomax) 0.8 mg PO BEDTIME [facility] [place] Last Admin: 02/21/19 21:35 Dose: 0.8 mg Tiotropium [place] (Spiriva Handihaler) 18 mcg INH DAILY [facility] Last Admin: 02/22/19 09:04 Dose: 18 mcg Admin: 02/21/19 09:35 Dose: 18 mcg Assessment/Plan Comment:: History of present illness Luis is a 64 -year-old gentleman was discharged from acute care status ~24 hours when he notified EMS due to having weakness in his legs with difficulty standing along with shortness of breath with increasing abilities to perform ADLs. He feels he has a pronounced weakness and almost falls when he has to do activities such as going to the bathroom or even standing up. His spouse is disabled herself and can do very little in assisting him with his own ADLs. His O2 saturations with 1-1/2 L remain in the mid 90s. Does have long-standing end- stage COPD and difficulty performing his self-care ADLs. ED workup --Duo Neb --IV Solu-Medrol 125 mg Recent acute Hospital course Patient's hospital course went well, no Abx were started and watchful waiting was employed due to the patient's good clinical condition and quick turnaround shortly after admission. WBC count trended down and normalize neutrophilia trended down, Pro calcitonin was normal, CRP trended favorably, sputum cleared up to a baseline white color, respiratory rate vital signs normal and stable. Patient quickly felt back to baseline, demonstrated no fever. chest x-ray did not demonstrate pneumonia. He was discharged in good condition however got quite anxious during discharge process when discussed with patient about possible medication changes as outpatient, one dose of prazosin was given and within 30 minutes patient was back to baseline Primary SNF problems Weakness, lower extremities COPD, stable, without acute exacerbation Multiple antibiotic allergy syndrome Secondary problems Hypertension. Continue with toprol XL. BP adequate. Depression and anxiety, Home SRRI lexapro and lorazepam. Schizoaffective disorder. Home seroquel and clonazepam. GERD, PPI, Disposition/overall plan --Admit to swing bed status (patient requiring >60% assistance with ADL's) --Discontinue aspirin --Social service/PT consult --BMP, CBC, ESR in am --Rx consultation (patient education, would like to remove Brovana since patient is dependent on JOSSELYN. Patient is on duplicating meds with LABA/LAMA/JOSSELYN , DEBORA, ICS. If patient is adamant about staying on duo nebs likely will d/c Brovana and/or ICS. (ICS higher risk for pneumonia). Discharge planning Suggest return back to [facility]
[2019-02-22] MEDS ORDERED: BUDESONIDE 0.5 MG/2 ML INH SCH (10:31)
[2019-02-22] MEDS ORDERED: Ondansetron 4 MG Tab.DIS **PTOM PO PRN (10:35)
[2019-02-22] MEDS ORDERED: ALPRAZOLAM 0.25 MG PO PRN (10:36)
[2019-02-22] MEDS ORDERED: ALBUTEROL INH PRN (10:45)
[2019-02-22] MEDS ORDERED: IPRATROPIUM INH PRN (10:45)
[2019-02-22] MEDS: Melatonin 3 MG Tab PO SCH (21:04)
[2019-02-22] MEDS: QUETIAPINE 200 MG PO SCH (21:04)
[2019-02-22] MEDS: Tamsulosin 0.4 MG Cap.ER**PT OWN PO SCH (21:08)
[2019-02-22] MEDS: LATANOPROST 0.005% EYEBOTH SCH (21:13)
[2019-02-23] MEDS: Omeprazole 20 MG Cap.CR**PT OWN PO SCH (06:06)
[2019-02-23] MEDS: ARFORMOTEROL 15 MCG/2 ML NEB SCH ×2 (07:18→20:28)
[2019-02-23 07:54] LABS: ANION GAP 6.8 mmol/L (5-15); CHLORIDE,CL 104 mmol/L (98-115); SODIUM,NA 142 mmol/L (136-145)
[2019-02-23] MEDS: Multivitamins with Minerals/Iron/Folic Acid/Lycopene Tab PO SCH (08:23)
[2019-02-23] MEDS: Cholecalciferol (Vitamin D3) 25 MCG Tab PO SCH (08:23)
[2019-02-23] MEDS: QUETIAPINE 100 MG PO SCH ×2 (08:23→16:58)
[2019-02-23] MEDS: MONTELUKAST 10 MG PO SCH (08:24)
[2019-02-23] MEDS: FINASTERIDE 5 MG PO SCH (08:24)
[2019-02-23] MEDS: CLONAZEPAM 1 MG PO SCH ×2 (08:25→20:44)
[2019-02-23] MEDS: Metoprolol Succinate 50 MG Tab.ER**PT OWN PO SCH (08:27)
[2019-02-23] MEDS: BUDESONIDE 0.5 MG/2 ML INH SCH ×2 (08:32→20:48)
[2019-02-23] MEDS: TIOTROPIUM 18 MCG INH SCH (09:21)
[2019-02-23] MEDS: LATANOPROST 0.005% EYEBOTH SCH (20:43)
[2019-02-23] MEDS: Melatonin 3 MG Tab PO SCH (20:44)
[2019-02-23] MEDS: Tamsulosin 0.4 MG Cap.ER**PT OWN PO SCH (20:45)
[2019-02-23] MEDS: QUETIAPINE 200 MG PO SCH (20:46)
[2019-02-24] MEDS: ARFORMOTEROL 15 MCG/2 ML NEB SCH ×2 (07:11→20:05)
[2019-02-24] MEDS: Omeprazole 20 MG Cap.CR**PT OWN PO SCH (07:51)
[2019-02-24] MEDS: Cholecalciferol (Vitamin D3) 25 MCG Tab PO SCH (08:32)
[2019-02-24] MEDS: Multivitamins with Minerals/Iron/Folic Acid/Lycopene Tab PO SCH (08:32)
[2019-02-24] MEDS: FINASTERIDE 5 MG PO SCH (08:33)
[2019-02-24] MEDS: QUETIAPINE 100 MG PO SCH ×2 (08:33→17:39)
[2019-02-24] MEDS: CLONAZEPAM 1 MG PO SCH ×2 (08:33→21:05)
[2019-02-24] MEDS: MONTELUKAST 10 MG PO SCH (08:33)
[2019-02-24] MEDS: Metoprolol Succinate 50 MG Tab.ER**PT OWN PO SCH (08:34)
[2019-02-24] MEDS: BUDESONIDE 0.5 MG/2 ML INH SCH ×2 (08:39→20:42)
[2019-02-24] MEDS: TIOTROPIUM 18 MCG INH SCH ×2 (09:21→09:24)
[2019-02-24] MEDS: LATANOPROST 0.005% EYEBOTH SCH (21:04)
[2019-02-24] MEDS: QUETIAPINE 200 MG PO SCH (21:05)
[2019-02-24] MEDS: Melatonin 3 MG Tab PO SCH (21:05)
[2019-02-24] MEDS: Tamsulosin 0.4 MG Cap.ER**PT OWN PO SCH (21:05)
[2019-02-25] MEDS: ARFORMOTEROL 15 MCG/2 ML NEB SCH (07:27)
[2019-02-25] MEDS: BUDESONIDE 0.5 MG/2 ML INH SCH (08:26)
[2019-02-25] MEDS: Omeprazole 20 MG Cap.CR**PT OWN PO SCH (08:44)
[2019-02-25] MEDS: Cholecalciferol (Vitamin D3) 25 MCG Tab PO SCH (08:44)
[2019-02-25] MEDS: Multivitamins with Minerals/Iron/Folic Acid/Lycopene Tab PO SCH (08:44)
[2019-02-25] MEDS: CLONAZEPAM 1 MG PO SCH (08:45)
[2019-02-25] MEDS: FINASTERIDE 5 MG PO SCH (08:45)
[2019-02-25] MEDS: Metoprolol Succinate 50 MG Tab.ER**PT OWN PO SCH (08:46)
[2019-02-25] MEDS: QUETIAPINE 100 MG PO SCH (08:46)
[2019-02-25] MEDS: MONTELUKAST 10 MG PO SCH (08:46)
[2019-02-25] MEDS: TIOTROPIUM 18 MCG INH SCH (09:03)
[2019-02-25 09:19] VITALS: BP 129/79
[2019-02-25 09:49] VITALS: PULSE 72
--- NOTE | 2019-02-25 09:54 | PCM.DCSUM1 ---
Discharge Summary - Hospital Course Diagnosis: Stroke: No - Discharge Data Discharge Date: 02/25/19 Discharge Disposition: Home, Self-Care 01 Condition: Good - Patient Summary/Data Consults: Consultations 02/20/19 22:12 PT Evaluation and Treatment [CONS] Routine - Patient Instructions Diet: Usual Diet as Tolerated Activity: As Tolerated Driving: May Drive Today Showering/Bathing: May Shower Notify Provider of: Fever Other/Special Instructions: report any worsening weakness or shortness of breath. Stay out of heat. Will see you next week [facility] - Discharge Plan *PRESCRIPTION DRUG MONITORING PROGRAM REVIEWED*: Not Applicable *COPY OF PRESCRIPTION DRUG MONITORING REPORT IN PATIENT NIDA: Not Applicable Home Medications: Home Meds Budesonide [Pulmicort] 0.5 mg INH 0700,2200 08/27/13 [History] Cholecalciferol (Vitamin D3) [Vitamin D3] 1,000 units PO DAILY 08/27/13 [History ] Latanoprost [Xalatan 0.005% Ophth Soln] 1 drop EYEBOTH BEDTIME 08/27/13 [History ] Montelukast [Singulair] 10 mg PO DAILY 08/27/13 [History] Omeprazole 20 mg PO DAILY 08/27/13 [History] Tiotropium [Spiriva Handihaler] 18 mcg INH DAILY 08/27/13 [History] Tamsulosin [Flomax] 0.8 mg PO BEDTIME 05/23/15 [History] Metoprolol Succinate [Toprol XL 50mg] 50 mg PO DAILY 12/15/15 [History] Multivitamin with Minerals [Multiple Vitamin] 1 tab PO DAILY #30 tablet [Rx] Polyethylene Glycol 3350 [MiraLAX] 17 gm PO DAILY PRN 06/04/16 [History] Albuterol [Ventolin HFA] 2 puff INH Q6H PRN 06/06/16 [History] Acetaminophen [Tylenol] 650 mg PO Q4H PRN 03/21/17 [History] Arformoterol [Brovana] 15 mcg NEB BID 03/21/17 [History] Finasteride [Proscar] 5 mg PO DAILY 03/21/17 [History] Albuterol/Ipratropium [DuoNeb 3.0-0.5 MG/3 ML] 3 ml INH Q8H PRN 02/17/19 [ History] QUEtiapine Fumarate [Seroquel] 400 mg PO BEDTIME 02/17/19 [History] QUEtiapine [SEROquel] 100 mg PO 0900,1700 02/17/19 [History] clonazePAM [Klonopin] 1 mg PO BID 02/17/19 [History] Oxygen Therapy Mode: Nasal Cannula Referrals: Kobe Mckay, WAREHOUSING TECHNICIAN [Primary Care Provider] - 03/03/19 (attempt to book with me around the time of his PT appt this day. If not thats OK) - Discharge Summary/Plan Comment DC Time >30 min.: Yes Discharge Summary/Plan Comment: final diagnosis Weakness, lower extremities COPD, stable, without acute exacerbation Multiple antibiotic allergy syndrome History Luis is a 64 -year-old gentleman was discharged from acute care status ~24 hours when he notified EMS due to having weakness in his legs with difficulty standing along with shortness of breath with increasing abilities to perform ADLs. He feels he has a pronounced weakness and almost falls when he has to do activities such as going to the bathroom or even standing up. His spouse is disabled herself and can do very little in assisting him with his own ADLs. His O2 saturations with 1-1/2 L remain in the mid 90s. Does have long-standing end- stage COPD and difficulty performing his self-care ADLs. Most recent hosp course he was not given any abx and watchful waiting was employed due to the patient's good clinical condition and quick turnaround shortly after admission. WBC count trended down and normalize neutrophilia trended down, Pro calcitonin was normal, CRP trended favorably, sputum cleared up to a baseline white color, respiratory rate vital signs normal and stable. Patient quickly felt back to baseline, demonstrated no fever. chest x-ray did not demonstrate pneumonia. He was discharged in good condition however got quite anxious during discharge process when discussed with patient about possible medication changes as outpatient, one dose of prazosin was given and within 30 minutes patient was back to baseline swing bed hospital course Went well without problems, no fever, VSS, he received pharmacy consultation. No signs/sx of infection. WBC normal. He did well in PT and increased his stamina. Will be dc with FWW to medication changes and adjustmet upon discharge Discontinue aspirin Continue with ICS, LABA and PRN JOSSELYN consideration on follow-up f/u with me next week Reinforce JOSSELYN PRN only Consider allergy consult 2/2 Multiple antibiotic allergy syndrome - General Info Functional Status: Reports: Pain Controlled - Review of Systems General: Reports: No Symptoms HEENT: Reports: No Symptoms Pulmonary: Denies: Shortness of Breath, Wheezing Cardiovascular: Reports: No Symptoms Gastrointestinal: Reports: No Symptoms Genitourinary: Reports: No Symptoms Skin: Reports: No Symptoms Psychiatric: Reports: No Symptoms - Patient Data Vitals - Most Recent: Last Vital Signs Temp 97.6 F 02/25/19 07:00 Pulse 84 02/25/19 08:26 Resp 20 02/25/19 07:00 BP 129/79 02/25/19 07:00 Pulse Ox 97 02/25/19 08:26 Weight - Most Recent: 180 lb 9.6 oz I&O - Last 24 hours: Intake & Output 02/24/19 02/25/19 02/25/19 22:59 06:59 14:59 Intake Total 420 150 Balance 420 150 Med Orders - Current: Current Medications Acetaminophen (Tylenol) 650 mg PO Q4H PRN PRN Reason: Pain Cholecalciferol (Vitamin D3) 25 mcg PO DAILY [facility] Last Admin: 02/25/19 08:44 Dose: 25 mcg Melatonin (Melatonin) 3 mg PO BEDTIME [facility] Last Admin: 02/24/19 21:05 Dose: 3 mg Multivitamins/Minerals (Centrum) 1 tab PO DAILY [facility] Last Admin: 02/25/19 08:44 Dose: 1 tab Clonazepam 1mg Pt (Own) 1 each PO BID [facility] Last Admin: 02/25/19 08:45 Dose: 1 each Quetiapine 200mg (Pt Own) 400 mg PO BEDTIME [facility] Last Admin: 02/24/19 21:05 Dose: 400 mg Albuterol 8 Gm (Inhaler Ptom) 0 each INH Q6H PRN PRN Reason: Shortness of Breath Albuterol/Ipratropium 3.0-0.5 Mg/3 Ml Neb SolnPt Own 0 each INH Q8H PRN PRN Reason: Shortness of Breath Finasteride 5 Mg Tab ( Pt Own) 1 each PO DAILY [facility] Last Admin: 02/25/19 08:45 Dose: 1 each Latanoprost 0.005% Ophth Soln 2.5 Ml BottlePt Own 0 each EYEBOTH BEDTIME [facility] Last Admin: 02/24/19 21:04 Dose: 1 each Metoprolol Succinate 50 Mg Tab.ErPt Own 1 each PO DAILY [facility] Last Admin: 02/25/19 08:46 Dose: 1 each Montelukast 10 Mg (Tab Pt Own) 1 each PO DAILY [facility] Last Admin: 02/25/19 08:46 Dose: 1 each Omeprazole 20 Mg Cap (.CrPt Own) 1 each PO ACBREAKFAST@0700 [facility] Last Admin: 02/25/19 08:44 Dose: 1 each Quetiapine 100 Mg (TabPt Own) 1 each PO 0900,1700 [facility] Last Admin: 02/25/19 08:46 Dose: 1 each Tamsulosin 0.4 Mg (Cap.ErPt Own) 2 each PO BEDTIME [facility] Last Admin: 02/24/19 21:05 Dose: 2 each Tiotropium Inhaler 18 Mcg Inhalation Powder Cap Kit Of 30 Pt Own 1 each INH DAILY [facility] Last Admin: 02/25/19 09:03 Dose: 1 each Ondansetron 4 Mg Tab (.Dis Ptom) 1 each PO Q4H PRN PRN Reason: nausea, able to take PO Alprazolam 0.25 Mg (Tab Ptom) 1 each PO Q24H PRN PRN Reason: Anxiety Arformoterol ( Brovana) 15 Mcg/2 Ml Neb - Ptom 1 each NEB BIDRT [facility] Last Admin: 02/25/19 07:27 Dose: 1 each Budesonide 0.5 Mg/2 Ml Neb SuspPt Own* * 1 each INH 0830,2030 [facility] Last Admin: 02/25/19 08:26 Dose: 1 each Polyethylene Glycol (Miralax) 17 gm PO DAILY PRN PRN Reason: Constipation Discontinued Medications Albuterol (Ventolin Hfa) 0 gm INH Q6H PRN PRN Reason: Shortness of Breath Albuterol/Ipratropium (Duoneb 3.0-0.5 Mg/3 Ml) 3 ml INH Q8H PRN PRN Reason: Shortness of Breath Last Admin: 02/21/19 17:24 Dose: 3 ml Alprazolam (Xanax) 0.25 mg PO Q24H PRN PRN Reason: Anxiety Arformoterol Tartrate (Brovana) 15 mcg NEB BID [facility] Last Admin: 02/22/19 09:11 Dose: 15 mcg Aspirin (Halfprin) 81 mg PO DAILY [facility] Last Admin: 02/22/19 09:07 Dose: 81 mg Budesonide (Pulmicort) 0.5 mg INH 0700,2200 [facility] Last Admin: 02/22/19 06:10 Dose: 0.5 mg Finasteride (Proscar) 5 mg PO DAILY [facility] Last Admin: 02/22/19 09:09 Dose: 5 mg Latanoprost (Xalatan 0.005% Ophth Soln) 0 ml EYEBOTH BEDTIME [facility] Last Admin: 02/21/19 21:33 Dose: 1 drop Metoprolol Succinate (Toprol Xl) 50 mg PO DAILY [facility] Last Admin: 02/22/19 09:08 Dose: 50 mg Montelukast Sodium (Singulair) 10 mg PO DAILY [facility] Last Admin: 02/22/19 09:09 Dose: 10 mg Omeprazole (Omeprazole) 20 mg PO ACBREAKFAST@0700 [facility] Last Admin: 02/22/19 06:05 Dose: 20 mg Ondansetron HCl (Zofran Odt) 4 mg PO Q4H PRN PRN Reason: nausea, able to take PO Budesonide 0.5 Mg/2 Ml Neb SuspPt Own* * 1 each INH 0700,2200 [facility] Quetiapine Fumarate (Seroquel) 100 mg PO 0900,1700 [facility] Last Admin: 02/22/19 09:09 Dose: 100 mg Ramelteon (Rozerem) 8 mg PO BEDTIME [facility] Last Admin: 02/21/19 21:33 Dose: 8 mg Tamsulosin HCl (Flomax) 0.8 mg PO BEDTIME [facility] Last Admin: 02/21/19 21:35 Dose: 0.8 mg Tiotropium [place] (Spiriva Handihaler) 18 mcg INH DAILY [facility] Last Admin: 02/22/19 09:04 Dose: 18 mcg - Exam Quality Assessment: Reports: Supplemental Oxygen General: Reports: Alert, Oriented Lungs: Reports: Normal Respiratory Effort, Decreased Breath Sounds. Denies: Crackles, Rales, Rhonchi Cardiovascular: Reports: Regular Rate, Regular Rhythm
== END 2019-02-25 10:00 | disposition home or self-care (01) | DRG 948 ==
LOC: UNDOADMIN 14:00 → KA.MS 14:00
PROVIDERS: ADMIT Nurse Practitioner Family; ATTEND Family Medicine
DX: R53.1 Weakness (principal); J44.9 Chronic obstructive pulmonary disease, unspecified; I10 Essential (primary) hypertension; F32.9 Major depressive disorder, single episode, unspecified; F41.9 Anxiety disorder, unspecified; F25.9 Schizoaffective disorder, unspecified; K21.9 Gastro-esophageal reflux disease without esophagitis; N40.0 Benign prostatic hyperplasia without lower urinary tract symptoms; M54.9 Dorsalgia, unspecified; M54.2 Cervicalgia; G89.29 Other chronic pain; E55.9 Vitamin D deficiency, unspecified; Z87.891 Personal history of nicotine dependence; Z79.899 Other long term (current) drug therapy; Z88.1 Allergy status to other antibiotic agents
CPT/HCPCS: 36415; 80048; 85025; 85651; 94640; 97110-GP; 97161-GP; A9270-GY; J7620-GY

== ENCOUNTER 2021-01-19 12:28 | Emergency (ER) | payer MEDICARE, OTHER ==
[2021-01-19] MEDS ORDERED: Sodium Chloride 0.9% 1,000 ML IV ONE (12:35)
[2021-01-19 13:39] LABS: ANION GAP 9.8 mmol/L (5-15); CHLORIDE,CL 102 mmol/L (98-107); SODIUM,NA 141 mmol/L (136-145)
--- NOTE | 2021-01-19 14:43 | EDM.PDOC ---
ED HPI GENERAL MEDICAL PROBLEM - General Chief Complaint: Abdominal Pain Stated Complaint: abd pain Time Seen by Provider: 01/19/21 12:35 Source of Information: Reports: Patient History Limitations: Reports: No Limitations - History of Present Illness INITIAL COMMENTS - FREE TEXT/NARRATIVE: 65-year-old male presents to the emergency room with complaints of umbilical abdominal pain and abrupt onset of diarrhea today. Patient reports that his belly pain has been intermittent and been going on now for several months. He feels the symptoms wax and wane. He reports about a bowel movement once every 4days. He has had occasional diarrhea symptoms in between his normal bowel movements. He does report some discomfort with constipation or difficult passing BM. He denies any recent fever or chills. No nausea or vomiting. He has had a previous colonoscopy and upper GI studies but he believes that this has been done over 7 years ago. He has been intermittently taking Taryn-Doole and Pepto-Bismol for his stomach discomfort. He denies any hematuria blood in the stools or dark tarry stools. He denies any abdominal bloating. Onset: Today Duration: Chronic Location: Reports: Abdomen Quality: Reports: Ache Severity: Moderate Improves with: Reports: Rest Worsens with: Reports: None Associated Symptoms: Denies: Diaphoresis, Nausea/Vomiting, Shortness of Breath, Syncope Treatments INVESTMENT ASSOCIATE: Reports: Other (see below) (Pepto-Bismol, Taryn-Doole) Lower Abdominal Pain Score (Numeric/FACES): 9 - Related Data Allergies Allergy/AdvReac Type Severity Reaction Status Date / Time azithromycin [From Zithromax] Allergy Cannot Verified 01/19/21 13:33 Remember cephalexin monohydrate Allergy Cannot Verified 01/19/21 13:33 [From Keflex] Remember ciprofloxacin Allergy Rash Verified 01/19/21 13:33 diphenhydramine HCl Allergy Rash Verified 01/19/21 13:33 [From Benadryl] doxycycline Allergy Dizziness Verified 01/19/21 13:33 levofloxacin [From Levaquin] Allergy Cannot Verified 01/19/21 13:33 Remember piperacillin sodium Allergy Wheezing Verified 01/19/21 13:33 [From Zosyn] Sulfa (Sulfonamide Allergy Rash Verified 01/19/21 13:33 Antibiotics) tazobactam sodium Allergy Wheezing Verified 06/18/21 13:33 [From Zosyn] vancomycin Allergy Cannot Verified 01/19/21 13:33 Remember Onions Allergy Mild Rash Uncoded 01/19/21 13:33 Peppers Allergy Unknown Rash Uncoded 01/19/21 13:33 Soap Allergy Unknown Itching Uncoded 01/19/21 13:33 Home Meds: Home Meds Budesonide [Pulmicort] 0.5 mg INH 0700,2200 08/27/13 [History] Cholecalciferol (Vitamin D3) [Vitamin D3] 1,000 units PO DAILY 08/27/13 [History] Latanoprost [Xalatan 0.005% Ophth Soln] 1 drop EYEBOTH BEDTIME 08/27/13 [History] Montelukast [Singulair] 10 mg PO DAILY 08/27/13 [History] Omeprazole 20 mg PO DAILY 08/27/13 [History] Tiotropium [Spiriva Handihaler] 18 mcg INH DAILY 08/27/13 [History] Tamsulosin [Flomax] 0.8 mg PO BEDTIME 05/23/15 [History] Metoprolol Succinate [Toprol XL 50mg] 50 mg PO DAILY 12/15/15 [History] Multivitamin with Minerals [Multiple Vitamin] 1 tab PO DAILY #30 tablet 12/22/15 [Rx] Polyethylene Glycol 3350 [MiraLAX] 17 gm PO DAILY PRN 06/04/16 [History] Albuterol [Ventolin HFA] 2 puff INH Q6H PRN 06/06/16 [History] Acetaminophen [Tylenol] 650 mg PO Q4H PRN 03/21/17 [History] Arformoterol [Brovana] 15 mcg NEB BID 03/21/17 [History] Finasteride [Proscar] 5 mg PO DAILY 03/21/17 [History] Albuterol/Ipratropium [DuoNeb 3.0-0.5 MG/3 ML] 3 ml INH Q8H PRN 02/17/19 [History] QUEtiapine Fumarate [Seroquel] 400 mg PO BEDTIME 02/17/19 [History] QUEtiapine [SEROquel] 100 mg PO 0900,1700 02/17/19 [History] clonazePAM [Klonopin] 1 mg PO BID 02/17/19 [History] Past Medical History HEENT History: Reports: Glaucoma, Impaired Vision Cardiovascular History: Reports: SOB on Exertion Respiratory History: Reports: Asthma, Bronchitis, Recurrent, COPD, Pneumonia, Recurrent, SOB Other Respiratory History: history of fungal lung infection Gastrointestinal History: Reports: GERD Genitourinary History: Reports: BPH, Prostate Disorder Other Genitourinary History: cystitis without hematuria Musculoskeletal History: Reports: Back Pain, Chronic, Neck Pain, Chronic Neurological History: Reports: Other (See Below) Other Neuro History: chronic shaking Psychiatric History: Reports: Anxiety, Depression, Panic Attack Endocrine/Metabolic History: Reports: Vitamin D Deficiency, Other (See Below) Other Endocrine/Metabolic History: thyroid nodule,nontoxic uninodular goiter Hematologic History: Reports: Other (See Below) Other Hematologic History: platelet transfusion Immunologic History: Reports: None Oncologic (Cancer) History: Reports: None Dermatologic History: Reports: None - Infectious Disease History Infectious Disease History: Reports: Measles, Mumps, Rubella - Past Surgical History Head Surgeries/Procedures: Reports: None HEENT Surgical History: Reports: None Cardiovascular Surgical History: Reports: None Respiratory Surgical History: Reports: Lung Biopsies Other Respiratory Surgeries/Procedures: bronchoscopy, biopsy 2011 GI Surgical History: Reports: Hernia, Inguinal Male Surgical History: Reports: None Endocrine Surgical History: Reports: None Neurological Surgical History: Reports: None Musculoskeletal Surgical History: Reports: None Other Musculoskeletal Surgeries/Procedures:: knee repair Oncologic Surgical History: Reports: None Dermatological Surgical History: Reports: None Social & Family History - Family History Family Medical History: No Pertinent Family History - Tobacco Use Tobacco Use Status *Q: Former Tobacco User Years of Tobacco use: 35 Used Tobacco, but Quit: Yes Month/Year Tobacco Last Used: 10/2004 - Caffeine Use Caffeine Use: Reports: Coffee ED ROS GENERAL - Review of Systems Review Of Systems: See Below Constitutional: Reports: No Symptoms HEENT: Reports: No Symptoms Respiratory: Reports: Shortness of Breath Cardiovascular: Denies: Chest Pain, Dyspnea on Exertion, Syncope Endocrine: Reports: No Symptoms GI/Abdominal: Reports: Abdominal Pain (Chronic has been complaining of increasing abdominal pain over several months. With a new onset of diarrhea today.), Constipation, Diarrhea. Denies: Black Stool, Bloody Stool, Distension, Hematemesis, Nausea, Stool Incontinence, Vomiting : Denies: Discharge, Dysuria, Flank Pain, Frequency, Hematuria Musculoskeletal: Reports: No Symptoms Skin: Reports: No Symptoms Neurological: Reports: No Symptoms Psychiatric: Reports: No Symptoms Hematologic/Lymphatic: Reports: No Symptoms Immunologic: Reports: No Symptoms ED EXAM, GI/ABD - Physical Exam Exam: See Below Exam Limited By: No Limitations General Appearance: Alert, No Apparent Distress, Thin Eyes: Bilateral: EOMI Ears: Normal External Exam, Hearing Grossly Normal Nose: Normal Inspection Throat/Mouth: Normal Oropharynx, Normal Voice, No Airway Compromise Head: Atraumatic, Normocephalic Neck: Normal Inspection, Supple, Non-Tender, Full Range of Motion Respiratory/Chest: No Respiratory Distress, Lungs Clear, Normal Breath Sounds, No Accessory Muscle Use, Chest Non-Tender Cardiovascular: Regular Rate, Rhythm GI/Abdominal Exam: Normal Bowel Sounds, Soft, No Organomegaly, No Distention, No Abnormal Bruit, No Mass, Pelvis Stable, Tender (Mild tenderness in umbilical). No: Guarding, Rigid, Rebound, Hernia Back Exam: Normal Inspection, Full Range of Motion Extremities: Normal Inspection, Normal Range of Motion, Non-Tender, No Pedal Edema. No: Pedal Edema Neurological: Alert, Oriented, Normal Cognition, No Motor/Sensory Deficits Psychiatric: Normal Affect, Normal Mood Skin Exam: Warm, Dry, Intact, Normal Color, No Rash Lymphatic: No Adenopathy #1 Interpretation EKG Date: 01/19/21 Time: 12:30 Rhythm: NSR Rate (Beats/Min): 96 [place]: Normal P-Wave: Present QRS: Normal ST-T: Depressed QT: Normal Comparison: NA - No Prior EKG EKG Interpretation Comments: Sinus rhythm with frequent PVC complexes. Junctional ST depression, probably normal Borderline ECG Course - Vital Signs Last Recorded V/S: Last Vital Signs Temp 98.1 F 01/19/21 15:04 Pulse 78 01/19/21 15:04 Resp 20 01/19/21 15:04 BP 120/75 01/19/21 15:04 Pulse Ox 99 01/19/21 15:04 - Orders/Labs/Meds Orders: Active Orders 24 hr Category Date Time Status UA W/MICROSCOPIC [URIN] Stat Lab 01/19/21 14:00 Results Labs: Laboratory Tests 01/19/21 01/19/21 01/19/21 Range/Units 12:40 12:40 14:00 WBC 5.30 (5.00-10.00) 10^3/uL RBC 4.71 (4.50-6.00) 10^6/uL Hgb 15.2 (13.0-17.0) g/dL Hct 44.7 (40.0-52.0) % MCV 94.9 H D (82.0-92.0) fL MCH 32.3 H (27.0-31.0) pg MCHC 34.0 (32.0-36.0) g/dL RDW 12.6 (11.5-14.5) % Plt Count 145 L (150-400) 10^3/uL MPV 11.0 H (7.4-10.4) fL Immature Gran % (Auto) 0.0 (0.0-5.0) % Neut % (Auto) 77.0 H (50.0-70.0) % Lymph % (Auto) 13.6 L (20.0-40.0) % [place] % (Auto) 8.3 H (2.0-8.0) % Eos % (Auto) 0.9 L (1.0-3.0) % Baso % (Auto) 0.2 (0.0-1.0) % Neut # (Auto) 4.08 (2.50-7.00) 10^3/uL Lymph # (Auto) 0.72 L (1.00-4.00) 10^3/uL [place] # (Auto) 0.44 (0.10-0.80) 10^3/uL Eos # (Auto) 0.05 L (0.10-0.30) 10^3/uL Baso # (Auto) 0.01 (0.00-0.10) 10^3/uL Immature Gran # (Auto) 0.00 (0.00-0.50) 10^3/uL Sodium 141 (136-145) mmol/L Potassium 3.5 (3.5-5.1) mmol/L Chloride 102 (98-107) mmol/L Carbon Dioxide 32.7 H (21.0-32.0) mmol/L Anion Gap 9.8 (5-15) mmol/L BUN 12 (7-18) mg/dL Creatinine 0.67 (0.51-1.17) mg/dL Est Cr Clr Drug Dosing 115.50 mL/min Estimated GFR (MDRD) > 60 mL/min Glucose 118 (70-140) mg/dL Calcium 8.1 L (8.7-10.3) mg/dL Total Bilirubin 0.2 (0.2-1.0) mg/dL AST 13 L (15-37) U/L ALT 20 (14-63) U/L Alkaline Phosphatase 83 (46-116) U/L Troponin I High Sens 8.400 (0-76.000) pg/mL Total Protein 7.2 (6.4-8.2) g/dL Albumin 3.35 L (3.40-5.00) g/dL Urine Color Yellow (YELLOW) Urine Appearance Clear (CLEAR) Urine pH 6.0 (5.0-9.0) Ur Specific [place] 1.025 (1.005-1.030) Urine Protein Negative (NEGATIVE) mg/dL Urine Glucose (UA) Negative (NEGATIVE) mg/dL Urine Ketones Negative (NEGATIVE) mg/dL Urine Occult Blood Negative (NEGATIVE) Urine Nitrite Negative (NEGATIVE) Urine Bilirubin Negative (NEGATIVE) Urine Urobilinogen 0.2 (0.2-1.0) E.U./dL Ur Leukocyte Esterase Negative (NEGATIVE) Meds: Medications Discontinued Medications Generic Name Dose Route Start Last Admin Trade Name Freq PRN Reason Stop Dose Admin Sodium Chloride 1,000 mls @ 1,000 mls/hr 01/19/21 12:35 01/19/21 12:52 Normal Saline IV 01/19/21 13:34 1,000 mls/hr .BOLUS ONE Administration Loperamide HCl 2 mg 01/19/21 14:49 01/19/21 15:02 Loperamide 2 Mg Cap PO 01/19/21 14:50 2 mg ONETIME ONE Administration - Radiology Interpretation Free Text/Narrative:: Abdominal x-ray upright - Re-Assessments/Exams Free Text/Narrative Re-Assessment/Exam: 01/19/21 15:09 Patient states that his abdominal pain is resolved he has not had an episode of diarrhea while in the emergency room. His lab work including UA look unremarkable. Abdominal x-ray upright is unremarkable. No evidence of bowel dilation or free air. Departure - Departure Time of Disposition: 15:19 Disposition: Home, Self-Care 01 Condition: Good Clinical Impression: Abdominal pain Qualifiers: Abdominal location: periumbilical Qualified Code(s): R10.33 - Periumbilical pain Diarrhea Qualifiers: Diarrhea type: functional diarrhea Qualified Code(s): K59.1 - Functional diarrhea - Discharge Information Instructions: Abdominal Pain, Adult Referrals: Kobe Mckay, TIMBER INSPECTOR [Primary Care Provider] - Forms: ED Department Discharge Care Plan Goals: 1. Imodium A-D as needed for diarrhea complaints. 2. Continue working on oral hydration.. 3. Recommend following up with your primary care as your abdominal pain lengths have been intermittent for several months. This may also include needing to have a colonoscopy or upper GI study as you have had these in the past but it has been you believe 7 years. 4. Encourage you for follow-up with Kobe Mckay and schedule an appointment. Sepsis Event Note (ED) - Evaluation Sepsis Screening Result: No Definite Risk - Focused Exam Vital Signs: Vital Signs Temp Pulse Resp BP Pulse Ox 01/19/21 15:04 98.1 F 78 20 120/75 99 01/19/21 14:01 71 20 115/86 100 01/19/21 13:30 75 22 H 111/69 99 01/19/21 12:55 90 18 110/82 99 01/19/21 12:40 97.6 F 87 20 110/63 96 - My Orders Last 24 Hours: My Active Orders 01/19/21 14:00 UA W/MICROSCOPIC [URIN] Stat - Assessment/Plan Last 24 Hours: My Active Orders 01/19/21 14:00 UA W/MICROSCOPIC [URIN] Stat Assessment:: 1. Diarrhea 2. Intermittent chronic abdominal pain. Plan: 1. Imodium A-D as needed for diarrhea complaints. 2. Continue working on oral hydration.. 3. Recommend following up with your primary care as your abdominal pain lengths have been intermittent for several months. This may also include needing to have a colonoscopy or upper GI study as you have had these in the past but it has been you believe 7 years. 4. Encourage you for follow-up with Kobe Mckay and schedule an appointment.
[2021-01-19] MEDS ORDERED: Loperamide 2 MG Cap PO ONE (14:49)
--- NOTE | 2021-01-19 14:51 | CR ---
[id number] RAD/RAD Abdomen Flat Plate 1V EXAM: RAD Abdomen Flat Plate 1V INDICATION: Abdominal pain and diarrhea. COMPARISON: March 21, 2017. DISCUSSION: Normal bowel gas pattern without bowel dilation, free air or pneumatosis identified. Prostatic calcifications overlie the symphysis pubis. IMPRESSION: 1. Nonobstructive bowel gas pattern. Adryan Nieto MD 01/19/21 2626 Thank you for allowing us to participate in the care of your patient.
[2021-01-19 15:04] VITALS: BP 120/75; PULSE 78
== END 2021-01-19 15:20 | disposition home or self-care (01) ==
LOC: KA.ED 12:28
DX: R10.33 Periumbilical pain (principal); K59.1 Functional diarrhea; J44.9 Chronic obstructive pulmonary disease, unspecified; K21.9 Gastro-esophageal reflux disease without esophagitis; N40.0 Benign prostatic hyperplasia without lower urinary tract symptoms; Z88.1 Allergy status to other antibiotic agents; Z88.2 Allergy status to sulfonamides; Z91.018 Allergy to other foods; Z91.048 Other nonmedicinal substance allergy status; Z79.899 Other long term (current) drug therapy; Z87.891 Personal history of nicotine dependence
CPT/HCPCS: 36415; 74018; 80053; 81001; 84484; 85025; 99284; 99284-25; A9270-GY; J7030

== ENCOUNTER 2022-02-13 12:45 | Observation (INO) | payer MEDICARE, OTHER ==
[2022-02-13] MEDS ORDERED: Sodium Chloride 0.9% 10 ML Syringe FLUSH PRN ×3 (12:52→14:15)
[2022-02-13] MEDS ORDERED: Sodium Chloride 0.9% 1,000 ML IV ONE (13:00)
[2022-02-13] MEDS ORDERED: Dexamethasone 4 MG/ML SDV IVPUSH ONE (13:24)
[2022-02-13] MEDS ORDERED: Albuterol/Ipratropium 3.0-0.5 MG/3 ML Neb Soln NEB ONE (13:26)
[2022-02-13 13:28] LABS: ANION GAP 10.4 mmol/L (5-15)
[2022-02-13] MEDS ORDERED: Acetaminophen 325 MG Tab PO PRN ×2 (14:15→15:33)
[2022-02-13] MEDS ORDERED: Ibuprofen 600 MG Tab PO PRN (14:15)
[2022-02-13] MEDS ORDERED: Albuterol/Ipratropium 3.0-0.5 MG/3 ML Neb Soln NEB SCH (14:15)
[2022-02-13] MEDS ORDERED: Albuterol 8 GM Inhaler INH PRN (15:33)
[2022-02-13] MEDS ORDERED: Polyethylene Glycol 3350 Powder 17 GM Packet PO PRN (15:33)
[2022-02-13] MEDS: Sucralfate 1 GM Tab PO SCH ×2 (17:38→20:28)
[2022-02-13] MEDS: QUEtiapine 100 MG Tab PO SCH ×2 (17:38→20:27)
[2022-02-13] MEDS: Albuterol/Ipratropium 3.0-0.5 MG/3 ML Neb Soln NEB SCH ×2 (17:38→20:30)
[2022-02-13] MEDS: Tamsulosin 0.4 MG Cap.ER PO SCH (18:09)
[2022-02-13] MEDS: ClonazePAM 0.5 MG Tab PO SCH (20:27)
[2022-02-13] MEDS: Latanoprost 0.005% Ophth Soln 2.5 ML Bottle EYEBOTH SCH (20:27)
[2022-02-13] MEDS: Budesonide 0.5 MG/2 ML Neb Susp INH SCH (20:28)
[2022-02-13] MEDS: Arformoterol 15 MCG/2 ML Neb Soln NEB SCH (20:28)
[2022-02-14] MEDS: Albuterol/Ipratropium 3.0-0.5 MG/3 ML Neb Soln NEB SCH ×3 (01:40→10:21)
[2022-02-14] MEDS ORDERED: Pantoprazole 40 MG Tab.CR ONE (04:57)
[2022-02-14] MEDS: Pantoprazole 40 MG Tab.CR PO SCH ×3 (04:58→06:31)
[2022-02-14] MEDS: Sucralfate 1 GM Tab PO SCH ×4 (06:11→20:18)
[2022-02-14] MEDS: Arformoterol 15 MCG/2 ML Neb Soln NEB SCH ×2 (07:55→20:17)
[2022-02-14 08:02] LABS: ANION GAP 4.9 mmol/L (5-15)
[2022-02-14] MEDS: Budesonide 0.5 MG/2 ML Neb Susp INH SCH ×2 (08:38→20:17)
[2022-02-14] MEDS: ClonazePAM 0.5 MG Tab PO SCH ×2 (09:16→20:17)
[2022-02-14] MEDS: QUEtiapine 100 MG Tab PO SCH ×3 (09:16→20:17)
[2022-02-14] MEDS: Azithromycin 250 MG Tab PO SCH (09:16)
[2022-02-14] MEDS: Multivitamins with Minerals/Iron/Folic Acid/Lycopene Tab PO SCH (09:16)
[2022-02-14] MEDS: Finasteride 5 MG Tab PO SCH (09:17)
[2022-02-14] MEDS: Cholecalciferol (Vitamin D3) 25 MCG Tab PO SCH (09:17)
[2022-02-14] MEDS: Montelukast 10 MG Tab PO SCH (09:17)
[2022-02-14] MEDS: Dexamethasone 10 MG/ML SDV IVPUSH SCH (09:17)
[2022-02-14] MEDS: Revefenacin 175 MCG/3 ML Neb Soln INH SCH (09:18)
[2022-02-14] MEDS: Metoprolol Succinate 50 MG Tab.ER PO SCH (09:18)
[2022-02-14] MEDS ORDERED: PAXLOVID PO SCH (10:00)
[2022-02-14] MEDS: Albuterol/Ipratropium 3.0-0.5 MG/3 ML Neb Soln NEB PRN (15:15)
[2022-02-14] MEDS: Tamsulosin 0.4 MG Cap.ER PO SCH (18:01)
[2022-02-14] MEDS: PAXLOVID PO SCH (20:17)
[2022-02-14] MEDS: Latanoprost 0.005% Ophth Soln 2.5 ML Bottle EYEBOTH SCH (20:18)
[2022-02-15] MEDS: Sucralfate 1 GM Tab PO SCH ×3 (05:30→11:01)
[2022-02-15] MEDS: Pantoprazole 40 MG Tab.CR PO SCH ×2 (05:30→06:39)
[2022-02-15] MEDS: Azithromycin 250 MG Tab PO SCH (08:44)
[2022-02-15] MEDS: Montelukast 10 MG Tab PO SCH (08:44)
[2022-02-15] MEDS: Multivitamins with Minerals/Iron/Folic Acid/Lycopene Tab PO SCH (08:44)
[2022-02-15] MEDS: Metoprolol Succinate 50 MG Tab.ER PO SCH (08:45)
[2022-02-15] MEDS: Cholecalciferol (Vitamin D3) 25 MCG Tab PO SCH (08:45)
[2022-02-15] MEDS: QUEtiapine 100 MG Tab PO SCH (08:45)
[2022-02-15] MEDS: Finasteride 5 MG Tab PO SCH (08:45)
[2022-02-15 08:52] VITALS: BP 130/74
[2022-02-15] MEDS: Dexamethasone 10 MG/ML SDV IVPUSH SCH (08:52)
[2022-02-15] MEDS: Arformoterol 15 MCG/2 ML Neb Soln NEB SCH (08:53)
[2022-02-15] MEDS: Budesonide 0.5 MG/2 ML Neb Susp INH SCH (09:00)
[2022-02-15 09:07] VITALS: PULSE 76
[2022-02-15] MEDS: Revefenacin 175 MCG/3 ML Neb Soln INH SCH (10:59)
[2022-02-15] MEDS: ClonazePAM 0.5 MG Tab PO SCH (10:59)
[2022-02-15] MEDS: PAXLOVID PO SCH (11:01)
[2022-02-15] MEDS: Albuterol/Ipratropium 3.0-0.5 MG/3 ML Neb Soln NEB PRN (11:32)
== END 2022-02-15 12:35 | disposition home or self-care (01) ==
LOC: KA.ED 12:45 → KA.MS 14:15
PROVIDERS: ADMIT Physician Assistant Medical; ATTEND Internal Medicine
DX: J44.1 Chronic obstructive pulmonary disease with (acute) exacerbation (principal); U07.1 COVID-19; N40.0 Benign prostatic hyperplasia without lower urinary tract symptoms; E55.9 Vitamin D deficiency, unspecified; F41.9 Anxiety disorder, unspecified; F32.A Depression, unspecified; E46 Unspecified protein-calorie malnutrition; Z79.899 Other long term (current) drug therapy; Z88.1 Allergy status to other antibiotic agents; Z88.8 Allergy status to other drugs, medicaments and biological substances; Z91.018 Allergy to other foods; Z91.09 Other allergy status, other than to drugs and biological substances; Z98.890 Other specified postprocedural states
CPT/HCPCS: 36415; 71045; 80048; 80053; 81001; 83605; 84484; 85025; 87040; 87070; 87186; 87205; 93005; 94640; 96374; 96376; 99285-25; A9270-GY; G0378; J1100; J7030; J7620-GY; U0002

== ENCOUNTER 2022-10-21 15:35 | Observation (INO) | payer MEDICARE, OTHER ==
[2022-10-21] MEDS ORDERED: Sodium Chloride 0.9% 10 ML Syringe FLUSH PRN (15:44)
[2022-10-21] MEDS ORDERED: Sodium Chloride 0.9% 1,000 ML IV ONE (15:55)
[2022-10-21 16:25] LABS: ANION GAP 8.4 mmol/L (5-15)
[2022-10-21 17:06] LABS: RESPIRATORY SYNCYTIAL VIR NAA NEGATIVE (NEGATIVE)
[2022-10-21 17:09] LABS: CORONAVIRUS COVID-19 NAA NEGATIVE (NEGATIVE)
[2022-10-21] MEDS: Albuterol/Ipratropium 3.0-0.5 MG/3 ML Neb Soln NEB SCH ×2 (17:31→21:43)
[2022-10-21] MEDS: Sodium Chloride 0.9% 1,000 ML IV SCH (17:31)
[2022-10-21] MEDS ORDERED: Albuterol/Ipratropium 3.0-0.5 MG/3 ML Neb Soln NEB PRN (19:50)
[2022-10-21] MEDS ORDERED: Albuterol 8 GM Inhaler INH PRN (19:50)
[2022-10-21] MEDS ORDERED: Simethicone 80 MG Tab.Chew PO PRN (19:50)
[2022-10-21] MEDS ORDERED: Acetaminophen 325 MG Tab PO PRN (19:50)
[2022-10-21] MEDS ORDERED: QUETIAPINE 200 MG PO SCH (21:00)
[2022-10-21] MEDS ORDERED: CLONAZEPAM 1 MG PO SCH (21:00)
[2022-10-21] MEDS: CLONAZEPAM 1 MG PO SCH (21:50)
[2022-10-21] MEDS: ARFORMOTEROL 15 MCG/2 ML NEB SCH (21:53)
[2022-10-21] MEDS ORDERED: TAMSULOSIN 0.4 MG PO SCH (22:45)
[2022-10-21] MEDS: Budesonide 0.5 MG/2 ML Neb Susp**OWN MED INH SCH (22:58)
[2022-10-21] MEDS: SUCRALFATE 1 GM PO SCH (23:38)
[2022-10-22] MEDS: Albuterol/Ipratropium 3.0-0.5 MG/3 ML Neb Soln NEB SCH ×4 (00:59→13:07)
[2022-10-22] MEDS: Sodium Chloride 0.9% 1,000 ML IV SCH ×2 (01:01→08:47)
[2022-10-22] MEDS: Budesonide 0.5 MG/2 ML Neb Susp**OWN MED INH SCH (07:01)
[2022-10-22] MEDS: SUCRALFATE 1 GM PO SCH ×2 (08:55→13:06)
[2022-10-22] MEDS: CLONAZEPAM 1 MG PO SCH (08:56)
[2022-10-22] MEDS ORDERED: Finasteride 5 MG Tab - PTOM PO SCH (09:00)
[2022-10-22] MEDS ORDERED: Metoprolol Succinate 50 MG Tab.ER - PTOM PO SCH (09:00)
[2022-10-22] MEDS ORDERED: LEVOFLOXACIN 750 MG PO SCH (09:00)
[2022-10-22] MEDS ORDERED: ACETAMINOPHEN 650 MG PO SCH (09:00)
[2022-10-22] MEDS ORDERED: QUETIAPINE 100 MG PO SCH (09:00)
[2022-10-22] MEDS: ARFORMOTEROL 15 MCG/2 ML NEB SCH (10:39)
[2022-10-22 13:31] VITALS: BP 139/73; PULSE 89
== END 2022-10-22 13:45 | disposition home or self-care (01) ==
LOC: KA.ED 15:35 → KA.MS 16:59
PROVIDERS: ADMIT Physician Assistant Medical; ATTEND Nurse Practitioner Family
DX: J44.1 Chronic obstructive pulmonary disease with (acute) exacerbation (principal); E86.0 Dehydration; J18.9 Pneumonia, unspecified organism; K21.9 Gastro-esophageal reflux disease without esophagitis; N40.0 Benign prostatic hyperplasia without lower urinary tract symptoms; F41.0 Panic disorder [episodic paroxysmal anxiety]; F32.A Depression, unspecified; Z88.1 Allergy status to other antibiotic agents; Z88.2 Allergy status to sulfonamides; Z88.8 Allergy status to other drugs, medicaments and biological substances; Z91.018 Allergy to other foods; Z91.048 Other nonmedicinal substance allergy status; Z20.822 Contact with and (suspected) exposure to COVID-19; Z79.899 Other long term (current) drug therapy
CPT/HCPCS: 0241U; 36415; 71045; 80053; 83605; 83735; 84484; 85025; 93005; 94640; 96360; 96361; 99285-25; A9270-GY; G0378; J3490; J7030; J7620-GY

== ENCOUNTER 2025-04-28 12:04 | Inpatient (IN) | payer MEDICARE, OTHER ==
[2025-04-28] MEDS ORDERED: Sodium Chloride 0.9% 10 ML Syringe FLUSH PRN (12:09)
[2025-04-28] MEDS: Diltiazem 25 MG/5 ML SDV IVPUSH ONE ×2 (12:20→18:59)
[2025-04-28 12:22] LABS: BASOPHILS ABSOLUTE AUTO 0.01 10^3/uL (0.00-0.10); BASOPHILS PERCENT AUTO 0.1 % (0.0-1.0); EOSINOPHILS ABSOLUTE AUTO 0.01 10^3/uL (0.10-0.30); EOSINOPHILS PERCENT AUTO 0.1 % (1.0-3.0); IMMATURE GRAN ABSOLUTE AUTO 0.01 10^3/uL (0.00-0.04); IMMATURE GRAN PERCENT AUTO 0.1 % (0.0-0.4); LYMPHOCYTES ABSOLUTE AUTO 0.47 10^3/uL (1.00-4.00); LYMPHOCYTES PERCENT AUTO 6.7 % (20.0-40.0); MEAN PLATELET VOLUME 11.3 fL (7.4-10.4); MONOCYTES ABSOLUTE AUTO 0.52 10^3/uL (0.10-0.80); MONOCYTES PERCENT AUTO 7.4 % (2.0-8.0); NEUTROPHILS ABSOLUTE AUTO 6.02 10^3/uL (2.50-7.00); NEUTROPHILS PERCENT AUTO 85.6 % (50.0-70.0); PLATELET COUNT,PLT 122 10^3/uL (150-400); RED BLOOD CELL COUNT 4.53 10^6/uL (4.50-6.00); RED CELL DISTRIBUTION WIDTH 12.7 % (11.5-14.5); WHITE BLOOD CELL COUNT,WBC 7.04 10^3/uL (5.00-10.00)
[2025-04-28 12:38] LABS: B-TYPE NATRIURETIC PEPTIDE,BNP 95.0 pg/mL (0-100)
[2025-04-28 12:47] LABS: ALANINE AMINOTRANSFERASE,ALT 17.0 U/L (14-63); ASPARTATE AMNIOTRANSFERASE,AST 13.0 U/L (15-37); BILIRUBIN TOTAL 0.7 mg/dL (0.2-1.0); BLOOD UREA NITROGEN,BUN 12.0 mg/dL (7-18); CARBON DIOXIDE,CO2 41.4 mmol/L (21.0-32.0); CHLORIDE,CL 97.0 mmol/L (98-107); CREATININE 0.65 mg/dL (0.51-1.17); EST CRCL DRUG DOSING (CG) 101.73 mL/min; GLUCOSE RANDOM 147.0 mg/dL (70-140); POTASSIUM,K 3.9 mmol/L (3.5-5.1); PROTEIN TOTAL,TP 6.8 g/dL (6.4-8.2); SODIUM,NA 143.0 mmol/L (136-145)
[2025-04-28 12:48] LABS: ESTIMATED GFR 101.0 mL/min (>=60)
[2025-04-28] MEDS ORDERED: Magnesium Hydroxide 400 MG/5 ML Susp 30 ML Cup PO PRN (16:01)
[2025-04-28] MEDS ORDERED: Ondansetron 4 MG Tab.DIS PO PRN (16:01)
[2025-04-28] MEDS: Arformoterol 15 MCG/2 ML Neb Soln NEB SCH (19:37)
[2025-04-28] MEDS: Budesonide 0.5 MG/2 ML Neb Susp INH SCH (20:30)
[2025-04-29] MEDS: Omeprazole 20 MG Cap.CR PO SCH (06:11)
[2025-04-29 07:29] LABS: MEAN PLATELET VOLUME 11.3 fL (7.4-10.4); PLATELET COUNT,PLT 118 10^3/uL (150-400); RED BLOOD CELL COUNT 4.15 10^6/uL (4.50-6.00); RED CELL DISTRIBUTION WIDTH 12.5 % (11.5-14.5); WHITE BLOOD CELL COUNT,WBC 7.39 10^3/uL (5.00-10.00)
[2025-04-29 07:47] LABS: ALANINE AMINOTRANSFERASE,ALT 15 U/L (14-63); BILIRUBIN TOTAL 0.5 mg/dL (0.2-1.0); BLOOD UREA NITROGEN,BUN 14 mg/dL (7-18); CARBON DIOXIDE,CO2 40.5 mmol/L (21.0-32.0); CHLORIDE,CL 99 mmol/L (98-107); CREATININE 0.71 mg/dL (0.51-1.17); EST CRCL DRUG DOSING (CG) 93.94 mL/min; GLUCOSE RANDOM 128 mg/dL (70-140); POTASSIUM,K 4.2 mmol/L (3.5-5.1); PROTEIN TOTAL,TP 5.9 g/dL (6.4-8.2); SODIUM,NA 141 mmol/L (136-145); T4 FREE 1.44 ng/dL (0.76-1.46)
[2025-04-29 07:50] LABS: ASPARTATE AMNIOTRANSFERASE,AST < 9 U/L (15-37); ESTIMATED GFR 98 mL/min (>=60)
[2025-04-29] MEDS: Tiotropium Bromide 4 GM Inhalation Spray (2.5mcg/1 dose; 10 doses) INH SCH (08:36)
[2025-04-30 07:24] LABS: MEAN PLATELET VOLUME 11.3 fL (7.4-10.4); PLATELET COUNT,PLT 109 10^3/uL (150-400); RED BLOOD CELL COUNT 4.01 10^6/uL (4.50-6.00); RED CELL DISTRIBUTION WIDTH 12.6 % (11.5-14.5); WHITE BLOOD CELL COUNT,WBC 6.18 10^3/uL (5.00-10.00)
[2025-04-30 07:40] LABS: ALANINE AMINOTRANSFERASE,ALT 13 U/L (14-63); BILIRUBIN TOTAL 0.6 mg/dL (0.2-1.0); BLOOD UREA NITROGEN,BUN 13 mg/dL (7-18); CARBON DIOXIDE,CO2 40.2 mmol/L (21.0-32.0); CHLORIDE,CL 102 mmol/L (98-107); CREATININE 0.62 mg/dL (0.51-1.17); EST CRCL DRUG DOSING (CG) 107.89 mL/min; GLUCOSE RANDOM 107 mg/dL (70-140); POTASSIUM,K 4.1 mmol/L (3.5-5.1); PROTEIN TOTAL,TP 5.5 g/dL (6.4-8.2); SODIUM,NA 143 mmol/L (136-145)
[2025-04-30 07:41] LABS: ASPARTATE AMNIOTRANSFERASE,AST < 9 U/L (15-37); ESTIMATED GFR 102 mL/min (>=60)
[2025-04-30] MEDS: Diltiazem IR 60 MG Tab PO SCH (08:40)
[2025-05-01 07:24] LABS: MEAN PLATELET VOLUME 11.3 fL (7.4-10.4); PLATELET COUNT,PLT 99 10^3/uL (150-400); RED BLOOD CELL COUNT 4.27 10^6/uL (4.50-6.00); RED CELL DISTRIBUTION WIDTH 12.5 % (11.5-14.5); WHITE BLOOD CELL COUNT,WBC 6.98 10^3/uL (5.00-10.00)
[2025-05-01 07:40] LABS: ALANINE AMINOTRANSFERASE,ALT 17.0 U/L (14-63); ASPARTATE AMNIOTRANSFERASE,AST 13.0 U/L (15-37); BILIRUBIN TOTAL 0.4 mg/dL (0.2-1.0); BLOOD UREA NITROGEN,BUN 19.0 mg/dL (7-18); CARBON DIOXIDE,CO2 42.1 mmol/L (21.0-32.0); CHLORIDE,CL 100.0 mmol/L (98-107); CREATININE 0.57 mg/dL (0.51-1.17); EST CRCL DRUG DOSING (CG) 118.53 mL/min; ESTIMATED GFR 105.0 mL/min (>=60); GLUCOSE RANDOM 120.0 mg/dL (70-140); POTASSIUM,K 4.6 mmol/L (3.5-5.1); PROTEIN TOTAL,TP 6.2 g/dL (6.4-8.2); SODIUM,NA 142.0 mmol/L (136-145)
[2025-05-01] MEDS: Furosemide 40 MG/4 ML VIAL IVPUSH ONE (10:19)
[2025-05-01] MEDS: Potassium Chloride 10 MEQ Tab.ER PO ONE (10:19)
[2025-05-01 12:48] LABS: BASE EXCESS ARTERIAL,POC 12 mmol/L ((-2)-3); HCO3 ARTERIAL,POC 42.2 mmol/L (21-28); O2 SATURATION ARTERIAL,POC 93.8 % (94-98); PH ARTERIAL,POC 7.32 pH (7.35-7.45); PO2 ARTERIAL,POC 81 mmHg (83-108); TCO2 ARTERIAL,POC 41 mmol/L (22-29)
[2025-05-01 12:50] LABS: PCO2 ARTERIAL,POC 83 mmHg (35-48)
[2025-05-01 13:24] VITALS: BP 114/76; PULSE 118
[2025-05-02 05:07] LABS: TSH RECEPTOR AB <1.10 IU/L (<=1.75)
== END 2025-05-01 13:15 | DRG 308 ==
LOC: KA.ED 12:04 → KA.MS 14:20
PROVIDERS: ADMIT Internal Medicine; ATTEND Internal Medicine
PROC: 5A09357 Assistance with Respiratory Ventilation, Less than 24 Consecutive Hours, Continuous Positive Airway Pressure (ICD-10-PCS; principal; 2025-04-28)
DX: I48.91 Unspecified atrial fibrillation (principal); J81.0 Acute pulmonary edema; J44.1 Chronic obstructive pulmonary disease with (acute) exacerbation; J96.11 Chronic respiratory failure with hypoxia; R53.1 Weakness; F41.9 Anxiety disorder, unspecified; H54.7 Unspecified visual loss; J44.9 Chronic obstructive pulmonary disease, unspecified; K21.9 Gastro-esophageal reflux disease without esophagitis; N40.0 Benign prostatic hyperplasia without lower urinary tract symptoms; N42.9 Disorder of prostate, unspecified; M54.9 Dorsalgia, unspecified; I50.9 Heart failure, unspecified; G89.29 Other chronic pain; F32.A Depression, unspecified; I11.0 Hypertensive heart disease with heart failure; E55.9 Vitamin D deficiency, unspecified; I10 Essential (primary) hypertension; Z98.890 Other specified postprocedural states; Z99.81 Dependence on supplemental oxygen; Z87.891 Personal history of nicotine dependence; J44.89 Other specified chronic obstructive pulmonary disease; Z86.16 Personal history of COVID-19; Z88.2 Allergy status to sulfonamides; Z88.0 Allergy status to penicillin; Z88.5 Allergy status to narcotic agent; Z88.8 Allergy status to other drugs, medicaments and biological substances; Z91.048 Other nonmedicinal substance allergy status; Z79.899 Other long term (current) drug therapy
CPT/HCPCS: 36415; 36600; 71045; 80053; 82803; 83520; 83605; 83735; 83880; 84439; 84484; 85025; 85027; 93010; 94640; 96365; 96376; 99223-GT; 99232-GT; 99233-GT; 99239-GT; 99284; 99285-25; A9270-GY; J1160; J1163; J1938; J3490; J7030; Q3014